=== PATIENT | female | born 1935 | race Caucasian/White ===

== ENCOUNTER 2020-07-12 09:03 | Outpatient (CLI) | payer MEDICARE, SELFPAY ==
--- NOTE | ~2020-07-12 | US_ITS ---
EXAMINATION: US thyroid DATE: 07/12/2020 10:11 INDICATION: Left thyroid mass TECHNIQUE: Multiple ultrasound images of the thyroid were obtained. COMPARISON: None. FINDINGS: The right thyroid lobe measures 4.2 x 1.8 x 1.3 cm. The left thyroid lobe measures 4.2 x 2.3 x 1.9 c m. There is a wider than tall, solid isoechoic to slightly hyperechoic nodule with smooth margins an d with shadowing rim calcification which measures 1.6 x 1.0 x 0.9 cm (TI-RADS 4, moderately suspiciou s , FNA if >=1.5 cm, annual followup is >1 cm). There are numerous bilateral cystic thyroid nodules, the largest measuring up to 1 cm scattered throughout both the left and right thyroid lobes, many wit h peripheral echogenic foci with comet tailing consistent with colloid cysts with inspissated colloid (TI-RADS 1, benign, no FNA recommended). IMPRESSION: 1. 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 6 cm solid TI RADS 4 nodule in the left thyroid lobe for which ultrasound-guided biopsy would be terese mmended. Reviewed, dictated and finalized at location A. IMPRESSION: 1. Multiple bilateral thyroid nodules the majority consistent with colloid cyst s but with a single 1.6 cm solid TI RADS 4 nodule in the left thyroid lobe for which ultrasound-guided biopsy would be recommended.
== END 2020-07-12 09:04 | disposition home or self-care (01) ==
PROVIDERS: PCP Family Medicine; Visit Provider Family Medicine
DX: E04.2 Nontoxic multinodular goiter (principal)
CPT/HCPCS: 76536

== ENCOUNTER → 2020-10-15 08:47 | Outpatient (CLI) | payer MEDICARE, SELFPAY ==
--- NOTE | ~2020-10-15 | MM_ITS ---
EXAMINATION: MM diagnostic sheree BI w reba HISTORY: Palpable mass of the lower inner left breast TECHNIQUE: Craniocaudal, mediolateral, and mediolateral oblique 3-D tomosynthesis images of the breas ts were performed and synthetic 2-D images were generated. CAD analysis was submitted and interpreted . COMPARISON: 10/31/2010, 06/06/2009, 05/17/2008 BREAST PARENCHYMAL COMPOSITION: There are scattered areas of fibroglandular density. FINDINGS: Scattered benign-appearing calcifications are present. The palpable mass of the left breast corresponds to the patient's cardiac loop recorder. There is no evidence of suspicious mass, calcifi cation, or architectural distortion in either breast to suggest malignancy. There has been no suspic ious interval change. IMPRESSION: 1. No mammographic evidence of malignancy. 2. Recommend annual screening mammography while the patient remains in good health. BI-RADS Category 2: Benign finding(s). Reviewed, dictated and finalized at location A. STICS CLERK IMPRESSION: 1. No mammographic evidence of malignancy. 2. Recommend annual screening mammography while the patient remains in good hea lth. BI-RADS Category 2: Benign finding(s).
== END ==
PROVIDERS: PCP Family Medicine; Visit Provider Family Medicine
DX: N63.24 Unspecified lump in the left breast, lower inner quadrant (principal); R92.1 Mammographic calcification found on diagnostic imaging of breast
CPT/HCPCS: 77062; 77066; G0279

== ENCOUNTER 2020-10-23 09:50 | Outpatient (CLI) | payer MEDICARE, SELFPAY ==
--- NOTE | ~2020-10-23 | US_ITS ---
EXAMINATION: US FNA w image guidance DATE: 10/23/2020 11:15 INDICATION: Left thyroid nodule. TECHNIQUE: The procedure and its benefits, risks, and benefits were discussed with the patient. Risks specifical ly discussed included bleeding. The patient verbalized understanding of the risks and agreed to proce ed. The neck was prepped and draped in the usual sterile manner. 1% lidocaine was used for local ane sthesia. 5 passes were made with a 25G needle into the lesion. Appropriate needle location was docu mented with continuous sonographic guidance. There were no immediate complications. FINDINGS: Grayscale ultrasound images demonstrate needles advanced into a 1.6 cm nodule in left thyroid lobe fo r biopsy. IMPRESSION: 1. Ultrasound-guided fine needle aspiration of a left thyroid nodule. Reviewed, dictated and finalized at location A. LOPMENT ENGINEER
== END 2020-10-23 09:51 | disposition home or self-care (01) ==
PROVIDERS: PCP Family Medicine; Visit Provider Otolaryngology
DX: E04.1 Nontoxic single thyroid nodule (principal)
CPT/HCPCS: 10005; 88173; 88305

== ENCOUNTER 2020-11-14 12:25 | Outpatient (CLI) | payer MEDICARE, SELFPAY | END 2020-11-14 12:26 | disposition home or self-care (01) | LOC: ANHAUDIO 12:27 | PROVIDERS: PCP Family Medicine; Referring Provider Otolaryngology; Visit Provider Otolaryngology | DX: H90.3 Sensorineural hearing loss, bilateral (principal) | CPT/HCPCS: 92557; 92567 ==

== ENCOUNTER 2021-01-08 13:31 | Outpatient (CLI) | payer MEDICARE, SELFPAY ==
--- NOTE | 2021-01-08 13:37 | ECHO_ITS ---
Patient Info Name: Renee Bautista Age: 85 years : 1935 Gender: Female Ht: 64 in Wt: 108 lbs BSA: 1.48 m2 HR: 70 bpm BP: 165 / 76 mmHg Technical Quality: Fair Exam Date: 01/08/2021 1:58 PM Exam Location: [facility] Patient Status: Outpatient Admit Date: 01/08/2021 Staff Ordering Physician: Layton Mcclellan APRN Cue Worker: Rosita Nagel RDCS Attending Provider: Layton Mcclellan APRN Referring Physician: Eleuterio CORMIER; Exam Type: CA echo doppler color flow Study Info Indications R01.0 - Benign and innocent cardiac murmurs Complete two-dimensional, color flow and Doppler transthoracic echocardiogram is performed. Summary 1. Complete two-dimensional, color flow and Doppler transthoracic echocardiogram is performed. 2. Left ventricular chamber dimension is normal. 3. Left ventricular systolic function is normal, estimated at 60-65%. 4. Left ventricular septal wall motion is abnormal with septal motion related to bundle branch block. 5. The left ventricular diastolic function is grade I diastolic dysfunction. 6. E/e' 20 is elevated. 7. There is severe aortic valve sclerosis. 8. There is mild aortic valve stenosis based on a peak velocity of 276 cm/s, mean gradient of 16 mmHg, and aortic valve area of 1.5 cm2. However, by visual estimation there appears to be a severe aortic stenosis. Consider EDINSON if clinically indicated. 9. The mitral valve has moderately thickened leaflets and mildly calcified annulus. 10. There is trace tricuspid valve regurgitation. 11. No pulmonary hypertension, estimated pulmonary arterial systolic pressure is 30 mmHg. Left Ventricle E/e' 20 is elevated. Left ventricular chamber dimension is normal. Left ventricular systolic function is normal, estimated at 60-65%. Left ventricular septal wall motion is abnormal with septal motion related to bundle branch block. The left ventricular diastolic function is grade I diastolic dysfunction. Right Ventricle Right ventricular chamber dimension is normal. Right ventricular systolic function is normal. Left Atria Left atrial chamber dimension is normal. Right Atria Right atrial chamber dimension is normal. Aortic Valve There is mild aortic valve stenosis based on a peak velocity of 276 cm/s, mean gradient of 16 mmHg, and aortic valve area of 1.5 cm2. However, by visual estimation there appears to be a severe aortic stenosis. Consider EDINSON if clinically indicated. The aortic valve is trileaflet. There is severe aortic valve sclerosis. There is no aortic valve regurgitation. Pulmonic Valve There is no pulmonic regurgitation. Mitral Valve The mitral valve has moderately thickened leaflets and mildly calcified annulus. There is no mitral valve stenosis. There is no mitral valve regurgitation. Tricuspid Valve There is trace tricuspid valve regurgitation. No pulmonary hypertension, estimated pulmonary arterial systolic pressure is 30 mmHg. Pericardium/Pleural There is no pericardial effusion. Inferior Vena Cava Normal inferior vena cava with >50% collapse upon inspiration consistent with normal right atrial pressure, 5 mmHg. Aorta The aortic root size at the sinus of Valsalva is normal. Left Ventricular Outflow Tract Name Value Normal LVOT 2D
== END 2021-01-08 13:32 | disposition home or self-care (01) ==
PROVIDERS: PCP Internal Medicine; Visit Provider Nurse Practitioner
DX: R01.1 Cardiac murmur, unspecified (principal); I35.8 Other nonrheumatic aortic valve disorders; R93.1 Abnormal findings on diagnostic imaging of heart and coronary circulation
CPT/HCPCS: 93306

== ENCOUNTER 2021-07-01 21:04 | Observation (INO) | payer MEDICARE, SELFPAY ==
--- NOTE | ~2021-07-01 | XR_ITS ---
XR foot LT 2V DATE: 07/04/2021 10:42 INDICATION: Left foot pain. Distal second toe pain, wound TECHNIQUE: AP and lateral views COMPARISON: None FINDINGS: There is diffuse osteopenia. Plantar calcaneal enthesopathy. Hallux valgus and bunion deformity There is polyarticular osteoarthritis involving multiple tarsal, tarsometatarsal, metatarsophalangeal as well as interphalangeal joints. No recent fracture or dislocation, periosteal reaction or bone destruction is detected. There is extensive calcification of the anterior and posterior tibial and dorsalis pedis as well as m etatarsal arteries, suggesting diabetes. IMPRESSION: Diffuse osteopenia Plantar calcaneal enthesopathy Hallux valgus and bunion deformity Polyarticular osteoarthritis Extensive arterial calcifications suggesting diabetes Reviewed, dictated and finalized at location B.
--- NOTE | ~2021-07-01 | XR_ITS ---
XR knee LT 3V DATE: 07/04/2021 10:42 INDICATION: Left knee pain. Recent fall. TECHNIQUE: 3 views COMPARISON: None FINDINGS: There is diffuse osteopenia. There is prominent periarticular spurring of the patellofemoral and to a lesser extent medial lateral compartments. There is chondrocalcinosis of the medial and lateral compartments. No fracture or dislocation or joint effusion. No periosteal reaction or bone destruction. No radiopaq ue intra-articular loose body is evident. There is extensive calcification of the femoral and popliteal and trifurcation arteries. IMPRESSION: Osteopenia Tricompartment osteoarthritis, greatest at the patellofemoral compartment Chondrocalcinosis Reviewed, dictated and finalized at location B.
--- NOTE | ~2021-07-01 | XR_ITS ---
EXAMINATION: XR chest 1V portable DATE: 07/02/2021 00:16 INDICATION: Transient alteration of awareness TECHNIQUE: frontal view of the chest was obtained. COMPARISON: Chest radiograph dated 06/15/2019 FINDINGS: The lungs are clear with no focal airspace opacities, pulmonary edema, pleural effusion or pneumothor ax. Moderate-sized hiatal hernia. The cardiomediastinal silhouette is otherwise normal. Left pectoral implantable phototypesetting equipment monitor. IMPRESSION: 1. No acute cardiopulmonary disease. 2. Moderate-sized hiatal hernia. Reviewed, dictated and finalized at location A.
--- NOTE | ~2021-07-01 | CT_ITS ---
EXAMINATION: CT abdomen pelvis wo con DATE: 07/02/2021 00:28 INDICATION: Generalized abdominal pain and diarrhea TECHNIQUE: Computed tomography (CT) of the abdomen and pelvis was performed without intravenous contr ast. The dose-length product (DLP) was 180.07 mGy-cm. Automated exposure control and iterative recons truction technique were employed. COMPARISON: 02/10/2018 FINDINGS: Minimal dependent atelectasis is present in the lung bases. The heart size is normal. There is chronic pneumobilia, predominantly in the left hepatic lobe. There is a large hiatal hernia. The gallbladder is surgically absent. The spleen, pancreas, and adrenal glands appear normal. The kidneys are unremarkable. There is calcified atherosclerosis of the aorta and many of the other arteries. No pathologically enlarged abdominal or pelvic lymph nodes are identified. There is no free intraperito carlene gas or evidence of bowel obstruction. There is questionable mild wall thickening of the ascendin g colon. There is a 2.5 x 2.8 cm fluid collection in the right inguinal soft tissues. There is severe lumbar spondylosis. . IMPRESSION: 1. Possible mild wall thickening of the ascending colon which could be due to incomplete distention o r possibly colitis. Recommend correlation for tenderness. Reviewed, dictated and finalized at location A. IMPRESSION: 1. Possible mild wall thickening of the ascending colon which could be due to i ncomplete distention or possibly colitis. Recommend correlation for tenderness.
[2021-07-01 21:11] VITALS: BP 147/64; PULSE 69; RESP 15; TEMP 37.6; O2SAT 95
--- NOTE | 2021-07-01 21:27 | ECG_ITS ---
Measurements Intervals Dell Rate: 67 P: -5 MO: 179 QRS: -30 QRSD: 133 T: 64 QT: 407 QTc: 432 Interpretive Statements SINUS RHYTHM LEFT BUNDLE BRANCH BLOCK BASELINE ARTIFACT- V6 ABNORMAL ECG Electronically Signed On 07-02-2021 6:26:30 CDT by Nate Jain D.O.
--- NOTE | 2021-07-01 23:05 | PC.NURSE ---
This RN attempted to straight cath pt x2 with separate catheter kits. Another RN to try.
[2021-07-01 23:21] VITALS: BP 121/56; PULSE 68; RESP 17; O2SAT 94
[2021-07-01 23:31] LABS: Basophils Percent Auto 0.3 % (0.2-1.2); Hematocrit 40.6 % (37.0-47.0); Hemoglobin 12.9 g/dL (12.0-15.0); Immature Granulocyte Absolute 0.01 K/mm3 (0.00-0.031); Immature Granulocyte Percent A 0.3 % (0-0.5); Immature Platelet Fraction Pct 3.1 % (0.9-11.2); Lymphocytes Absolute Auto 0.77 K/mm3 (0.9-3.2); Lymphocytes Percent Auto 19.7 % (18.3-44.2); Mean Corpuscular HGB Conc 31.8 g/dl (32-36); Mean Corpuscular Hemoglobin 32.4 pg (26-34); Mean Platelet Volume 10.8 fl (7.4-10.4); Monocytes Absolute Auto 0.3 K/mm3 (0.1-0.6); Monocytes Percent Auto 8.7 % (2.6-8.5); Neutrophils Absolute Auto 2.8 K/mm3 (1.3-6.7); Platelet Count Result 99 k/mm3 (150-375); Red Blood Count 3.98 M/mm3 (4.2-5.4); Red Cell Distribution Width 12.9 % (11.5-14.5); White Blood Count 3.9 K/mm3 (4.5-10.0)
--- NOTE | 2021-07-01 23:31 | PC.NURSE ---
pts clothing appears unwashed for long period of time. pt had dried stool on her vagina and buttocks, appears to have been there for a long period of time as well. pts RN notified, as well as charger tester.
[2021-07-01 23:33] LABS: Add Urine Microscopic? YES; Appearance Urine Clear (Clear); Bilirubin Urine Negative (Negative); Blood Urine Negative (Negative); Color Urine Yellow (Yellow); Glucose Urine UA Negative (Negative); Ketones Urine Trace mg/dL (Negative); Leukocyte Esterase Ur Negative LEU/UL (Negative); Mucus Urine Rare /lpf; Nitrate Urine Negative (Negative); Protein Urine 2+ mg/dL (Negative); RBC Urine 0-2 /hpf (0-2); Specific Grav Ur 1.016 (1.001-1.035); Squamous Epithelial Cell Urine Rare /hpf (Few); Urobilinogen Urine Negative mg/dL (<2.0); WBC Urine 0-3 /hpf
[2021-07-01 23:50] LABS: Alanine Aminotransferase 15 U/L (4-35); Albumin Level 3.3 g/dL (3.5-5.1); Alkaline Phosphatase 65 U/L (38-126); Anion Gap 13 mmol/L (8-16); Aspartate Amino Transferase 35 U/L (14-36); Bilirubin,Total 0.3 mg/dL (0.2-1.3); Blood Urea Nitrogen 36 mg/dL (7-17); Calcium 8.7 mg/dL (8.4-10.2); Carbon Dioxide 17 mmol/L (22-30); Chloride 111 mmol/L (98-107); Estimated Glomerular Filt Rate 33; Glucose 76 mg/dL (65-110); Potassium 4.6 mmol/L (3.4-5.0); Sodium 141 mmol/L (137-145)
[2021-07-02] VITALS (10 sets, daily range): BP systolic 100–146; BP diastolic 36–56; PULSE 58–70; RESP 16–22; TEMP 36.1–37.2; O2SAT 92–96; BMI 17.4
[2021-07-02] MEDS: ONDANSETRON INJ 4 MG/2 ML VIAL IV PUSH (00:27)
[2021-07-02] MEDS: SODIUM CHLORIDE 0.9% IV 1,000 ML 999 ML IV CONT (00:27)
--- NOTE | 2021-07-02 01:14 | ED.GENADULT ---
HPI - General Adult General Chief complaint: Weakness Stated complaint: weakness Time Seen by Provider: 07/01/21 23:45 History of Present Illness HPI narrative: Patient 86-year-old female who presents the emergency department chief complaint of generalized weakness. The patient reports has been having significant diarrhea reports that she has some discomfort in her abdomen. The patient states this feels similar to whenever she had colitis before in the past and got dehydrated. The patient states that is not able to care for herself in her current state not able to get up and walk around. Patient reports symptoms are not improved by anything or they worsened by nothing. Related Data Home Medications Medication Instructions Recorded Confirmed glucosamine BPa-K1-Hktnekukk 1 tablet PO DAILY 10/10/20 03/21/21 karol 1,500 mg-400 unit-100 mg tablet uvqobpyj-rtq-juzou acid 0.4 1 tablet PO DAILY 10/10/20 03/21/21 mg-lycopene 300 mcg-lutein 250 mcg tablet naproxen sodium 220 mg capsule 220 mg PO BID PRN 10/10/20 03/21/21 zebyfcl-qjblowuwpxmys-sexhljmj 250 1 tablet PO Q4-6H PRN 12/13/20 03/21/21 mg-250 mg-65 mg tablet krill 350 mg-omega-3 90 mg-dha 24 cap PO 12/13/20 03/21/21 mg-epa 50 tw-ryaaobu-gumva capsule losartan 50 mg tablet 50 mg PO DAILY 12/13/20 03/21/21 melatonin 5 mg capsule mg PO .daily at HS cap 12/13/20 03/21/21 vit C,E,zinc,copper-dhrka9n 250 1 cap PO DAILY 12/13/20 03/21/21 mg-lutein 5 mg-zeaxanthin 1 mg capsule Allergies Allergy/AdvReac Type Severity Reaction Status Date / Time Penicillins Allergy Unknown Weakness Verified 07/01/21 21:22 Review of Systems Review of Systems: A 10 system review of systems was completed on the patient and is negative except for what is stated in the HPI. Nursing and ancillary documentation was reviewed. [facility] Past Medical History Medical History Arthritis History of cervical cancer History of headache Surgical History Surgical History History of laparoscopic cholecystectomy Family History Family History Father Carcinoma of colon Grandparent Carcinoma of colon Grandparent Tuberculosis Social History Social History Smoking status: Former smoker Smoking end date: 09/02/01 Gender identity (if verbalized by the patient): Female Exam Narrative: GENERAL: Well-appearing, well-nourished, and in no acute distress. HEAD: Normocephalic, atraumatic. EYES: PERRLA and EOMI. ENT: Nares clear, no rhinorrhea or epistaxis. Mucous membranes moist. NECK: Supple. CHEST: Clear to auscultation. No respiratory distress. HEART: Regular rate and rhythm. No murmur heard. Normal peripheral pulses. ABDOMEN: Soft, nontender, nondistended, normal active bowel sounds. EXTREMITIES: Normal range of motion. No edema. SKIN: Warm, dry, no rash. NEURO: No focal deficits. Alert and oriented x3. PSYCH: Normal mood and affect. Course Vital Signs Vital signs: Vital Signs Temperature 37.6 C 07/01/21 21:11 Pulse Rate 69 07/01/21 21:11 Respiratory Rate 15 07/01/21 21:11 Blood Pressure 147/64 H 07/01/21 21:11 Pulse Oximetry 95 07/01/21 21:11 Temperature 37.6 C 07/01/21 21:11 Pulse Rate 65 07/02/21 00:49 Respiratory Rate 17 07/02/21 00:49 Blood Pressure 137/47 L 07/02/21 00:49 Pulse Oximetry 94 07/02/21 00:49 Medical Decision Making Vital Signs Vital Signs: Vital Signs Temperature 37.6 C 07/01/21 21:11 Pulse Rate 69 07/01/21 21:11 Respiratory Rate 15 07/01/21 21:11 Blood Pressure 147/64 H 07/01/21 21:11 Pulse Oximetry 95 07/01/21 21:11 Temperature 37.6 C 07/01/21 21:11 Pulse Rate 65 07/02/21 00:49 Respiratory R
[2021-07-02 02:06] LABS: Lactic Acid Reflex 0.7 mmol/L (0.7-2.1)
[2021-07-02] MEDS: metroNIDAZOLE 500 MG/ISO 100ML 500 MG/100 ML BAG 100 MG IVPB ×5 (02:15→23:28)
--- NOTE | 2021-07-02 02:37 | ADMGEN ---
This patient, Renee Bautista, was admitted to Medical Room 247-. Patient/family oriented to hospital policies and general routines including ID bracelet, bed and alarms, visiting hours, pain management, procedures, bathroom and other care routines, personal items, smoking policy, room service/diet, and visiting hours. Information on how to activate the Rapid Response Team has been discussed. Patient/Family are encouraged to report perceived risks to care and to ask questions if they do not understand what they are told or what they should do.
[2021-07-02] MEDS: SODIUM CHLORIDE 0.9% IV 1,000 ML 125 ML IV CONT (03:18)
--- NOTE | 2021-07-02 03:23 | PM.IMHP ---
H&P: HPI History of Present Illness Date/Time: 07/02/21 03:23 Chief Complaint: weakness Narrative: Patient 86-year-old female who presents the emergency department accompanied by her son who is her executive consultant with complaints of generalized weakness. The patient reports she has been having significant diarrhea since past few days and reports that she has some discomfort in her abdomen. The patient states this feels similar to whenever she had colitis before in the past approximately 4 years ago and got dehydrated. she has not been eating and drinking much since past few days and was not able to care for herself and able to get up and get around. She denies any fevers chills. She denies any blood in her stool. She was having dry heaving and small amount of vomiting until yesterday. Review of Systems Review of Systems: - CONSTITUTIONAL: Denies weight loss, fever and chills. - HEENT: Denies changes in vision and hearing - RESPIRATORY: Denies SOB and cough. - CV: Denies palpitations and CP. - GI: Reports abdominal pain, nausea, vomiting and diarrhea. - : Denies dysuria and urinary frequency. - MSK: Denies myalgia and joint pain. - SKIN: Denies rash and pruritus. - NEUROLOGICAL: Denies headache and syncope. - PSYCHIATRIC: Denies recent changes in mood. Denies anxiety and depression. All systems reviewed & are unremarkable except as noted in HPI and below Constitutional: Constitutional: Reports fatigue and Reports weakness Neurologic: Reports weakness Endocrine: Endocrine: Reports fatigue PMFSH Past Medical History Medical History Arthritis History of cervical cancer History of headache Surgical History Surgical History History of laparoscopic cholecystectomy Family History Family History Father Carcinoma of colon Grandparent Carcinoma of colon Grandparent Tuberculosis Social History Social History Smoking status: Former smoker Substance use: former Substance use type: does not use Gender identity (if verbalized by the patient): Female Spiritual care concerns: No Meds Home Medications and Allergies Home Medications Medication Instructions Recorded Confirmed Type glucosamine HTu-X2-Wagqxzzwb 1 tablet PO DAILY 10/10/20 07/02/21 History karol 1,500 mg-400 unit-100 mg tablet uxzdbzvp-lfa-oinll acid 0.4 1 tablet PO DAILY 10/10/20 07/02/21 History mg-lycopene 300 mcg-lutein 250 mcg tablet naproxen sodium 220 mg capsule 220 mg PO BID PRN 10/10/20 07/02/21 History tezqoob-lzamwrvhyvhvj-vrwhmvxr 250 1 tablet PO Q4-6H PRN 12/13/20 07/02/21 History mg-250 mg-65 mg tablet glucosamine 750 qo-sqfnwrnerfg-toe 1 tablet PO BID #60 tablet 12/13/20 07/02/21 Rx no1 644 mg-C 30 mg-elissa 1 mg tablet krill 350 mg-omega-3 90 mg-dha 24 1 cap PO DAILY 12/13/20 07/02/21 History mg-epa 50 sl-lsczdub-ntqpb capsule losartan 50 mg tablet 50 mg PO DAILY 12/13/20 07/02/21 History melatonin 5 mg capsule 5 mg PO .daily at HS cap 12/13/20 07/02/21 History vit C,E,zinc,copper-paqmf8g 250 1 cap PO DAILY 12/13/20 07/02/21 History mg-lutein 5 mg-zeaxanthin 1 mg capsule omeprazole 40 mg capsule,delayed 40 mg PO DAILY #30 cap 02/15/21 07/02/21 Rx release hydrocodone 7.5 mg-acetaminophen 1 tablet PO Q8H PRN #90 tablet 06/20/21 07/02/21 Rx 325 mg tablet atorvastatin [Lipitor] 40 mg PO DAILY 07/02/21 07/02/21 History carvedilol [Coreg] 12.5 mg PO BID 07/02/21 07/02/21 History Allergies Allergy/AdvReac Type Severity Reaction Status Date / Time Penicillins Allergy Unknown Weakness Verified 07/01/21 21:22 Vital Signs Vital Signs - 24 hr 07/01/21 21:11 07/01/21 23:21 07/02/21 00:49 Tem
[2021-07-02] MEDS: ENOXAPARIN 30 MG/0.3 ML SYRINGE SUB-Q (10:12)
[2021-07-02] MEDS: LOSARTAN POTASSIUM 50 MG TABLET PO (10:13)
[2021-07-02] MEDS: carvediloL 12.5 MG TABLET PO (10:13)
[2021-07-02] MEDS: PANTOPRAZOLE 40 MG TABLET PO (10:13)
[2021-07-02] MEDS: ATORVASTATIN 40 MG TABLET PO (10:14)
[2021-07-02] MEDS: ACETAMINOPHEN/ASPIRIN/CAFFEINE 250-250-65 MG TABLET 1 TABLET PO (10:14)
[2021-07-02] MEDS: OPTI-GEN TAB 1 TABLET PO (10:15)
[2021-07-02] MEDS: MULTIVITAMINS /C LUTEIN (CENTRUM SILVER) TABLET *BKC 1 TAB PO (10:15)
--- NOTE | 2021-07-02 11:52 | PC.NURSE ---
pt's IV becomes occluded whenever pt bends her right arm; pt keeps her right arm in the bent position and on top of her chest resulting in the IVPB and IV fluids not being infused and not infused in the time expected; as a result of frequent occlusion, pt's IVPB are not on schedule
[2021-07-02] MEDS: SILVERGEL (ELTA) 45 ML 1 APPLIC TOPICAL (12:46)
--- NOTE | 2021-07-02 13:56 | PM.IMPN ---
Progress Note: A&P Assessment and Plan (1) Colitis: Code(s): K52.9 - Noninfective gastroenteritis and colitis, unspecified Status: Acute Assessment and Plan: - symptoms of diarrhea, likely infectious -Continue antibiotics: Levaquin and Flagyl - IV fluids for resuscitation, patient has decreased p.o. intake will continue IV fluids for now (2) NICHOLE (acute kidney injury): Code(s): N17.9 - Acute kidney failure, unspecified Status: Acute Assessment and Plan: creatinine 1.5 unclear baseline (maybe it is 1 as of 2018), continue IV fluids with diarrhea and decreased p.o. intake (3) Left bundle branch block: Code(s): I44.7 - Left bundle-branch block, unspecified Status: Acute Assessment and Plan: longstanding patient also has severe aortic stenosis longstanding (4) Essential (primary) hypertension: Code(s): I10 - Essential (primary) hypertension Status: Acute Assessment and Plan: continue home medications: Coreg, Cozaar Additional Plan Diet: Regular DVT prophylaxis: Lovenox GI prophylaxis: Ppi Code status: Do not resuscitate Disposition: Pending clinical course, IV antibiotics, PT OT evaluation Time Spent With Patient Time with patient: 15 - 25 minutes Subjective Date/time seen: 07/02/21 13:56 patient examined. She states she is hungry but once of food came she lost her appetite. We discussed continuing antibiotics for her colitis and encouraging increased p.o. intake. She has Ensure dietary supplement With her meals. IV fluids with decreased p.o. intake and with diarrhea. she states she has had another large bowel movement this morning however stool cultures were not collected. she is on Levaquin Flagyl for colitis. Patient denies fever, chills, nausea, vomiting. She endorses diarrhea and abdominal cramps. Review of Systems Review of Systems: All systems reviewed & are unremarkable except as noted in HPI and below Exam Narrative: - GENERAL: Pleasant frail elderly woman appears stated age. - EYES: EOMI. Anicteric. - HENT: Moist mucous membranes. - LUNGS: Clear to auscultation bilaterally, no wheezing, rhonchi, or rales. - CARDIOVASCULAR: Regular rate and rhythm. No murmur. - ABDOMEN: Soft, non-tender and non-distended. No palpable masses. - EXTREMITIES: No edema. Peripheral pulses 2+. multiple dry lesions on her lower extremities patient states are chronic. thin. - NEUROLOGIC: No focal neurological deficits. CN II-XII grossly intact. - PSYCHIATRIC: Awake, Alert and oriented. Appropriate mood and affect. - SKIN: Warm. lesions as above Objective Data Vital Signs Vital Signs: Vital Signs - 24 hr 07/01/21 21:11 07/01/21 23:21 07/02/21 00:49 Temperature 37.6 C Pulse Rate 69 68 65 Respiratory Rate 15 17 17 Blood Pressure 147/64 H 121/56 L 137/47 L Pulse Oximetry 95 94 94 07/02/21 01:34 07/02/21 03:09 07/02/21 03:30 Temperature 37.2 C Pulse Rate 70 70 62 Respiratory Rate 16 16 16 Blood Pressure 146/56 H 137/52 L Pulse Oximetry 93 93 92 07/02/21 05:48 07/02/21 10:13 Temperature 36.9 C Pulse Rate 64 61 Respiratory Rate 16 Blood Pressure 125/50 L Pulse Oximetry 96 Intake/Output Intake/Output: Intake & Output 06/29/21 06/30/21 07/01/21 07/02/21 23:59 23:59 23:59 23:59 Intake Total 1560 Balance 1560 Meds/Results Medications: Active Medications Generic Name Dose Route Start Last Admin Trade Name Joseq PRN Reason Stop Dose Admin Acetaminophen/Aspirin/Caffeine 1 tablet 07/02/21 03:33 07/02/21 10:14 Acetaminophen/Aspirin/Caffeine 250-250-65 Mg Tablet PO 1 tablet Q4-6H PRN Administration Headache Hydrocodone Bitart/Acetaminophen 1 tab 07/02/21 03:33 Hydrocodone/Acetaminophen (*Crx) 7.5-325 Mg Tablet PO Q8H PRN Pain Rated 4-6 Atorvastatin Calcium 40 mg 07/02/21 09:00 07/02/21 10:14 Atorvastatin 40 Mg Tablet PO 40 mg DAILY DAHIANA Administration Car
[2021-07-02] MEDS: HYDROcodone/acetaminophen (*CRX) 7.5-325 MG TABLET 1 TAB PO (20:27)
[2021-07-02] MEDS: MELATONIN 5 MG TABLET PO (20:29)
[2021-07-03] MEDS: ACETAMINOPHEN/ASPIRIN/CAFFEINE 250-250-65 MG TABLET 1 TABLET PO (01:09)
[2021-07-03 04:58] VITALS: BP 137/46; PULSE 54; RESP 18; TEMP 36; O2SAT 96
[2021-07-03] MEDS: metroNIDAZOLE 500 MG/ISO 100ML 500 MG/100 ML BAG 100 MG IVPB ×4 (05:06→23:58)
[2021-07-03] MEDS: OPTI-GEN TAB 1 TABLET PO (08:58)
[2021-07-03] MEDS: SILVERGEL (ELTA) 45 ML 1 APPLIC TOPICAL (08:58)
[2021-07-03 08:59] VITALS: PULSE 61
[2021-07-03] MEDS: PANTOPRAZOLE 40 MG TABLET PO (08:59)
[2021-07-03] MEDS: carvediloL 12.5 MG TABLET PO ×2 (08:59→21:27)
[2021-07-03] MEDS: ATORVASTATIN 40 MG TABLET PO (09:00)
[2021-07-03] MEDS: MULTIVITAMINS /C LUTEIN (CENTRUM SILVER) TABLET *BKC 1 TAB PO (09:00)
[2021-07-03] MEDS: ENOXAPARIN 30 MG/0.3 ML SYRINGE SUB-Q (09:00)
--- NOTE | 2021-07-03 11:14 | PM.IMPN ---
Progress Note: A&P Assessment and Plan (1) Colitis: Code(s): K52.9 - Noninfective gastroenteritis and colitis, unspecified Status: Acute Assessment and Plan: - seen on CT scan, continue Levaquin and Flagyl antibiotics, will transition to p.o. when stable - diarrhea appears to be slowing down (2) NICHOLE (acute kidney injury): Code(s): N17.9 - Acute kidney failure, unspecified Status: Acute Assessment and Plan: likely secondary to diarrhea, prerenal etiology (3) Acute dehydration: Code(s): E86.0 - Dehydration Status: Acute Assessment and Plan: - stopping IV fluids, blood pressure is normotensive today - Encourage p.o. intake with meal supplement (4) Essential (primary) hypertension: Code(s): I10 - Essential (primary) hypertension Status: Acute Assessment and Plan: yesterday blood pressures hypotensive, will continue home medications Cozaar Coreg as her blood pressures improved. IV fluids also stopped Additional Plan Diet: Regular with supplement DVT prophylaxis: Lovenox GI prophylaxis: Ppi Code status: Do not resuscitate Disposition: Pending PT OT evaluation, antibiotics may be transitioned IV to p.o. on discharge Time Spent With Patient Time with patient: 15 - 25 minutes Subjective Date/time seen: 07/03/21 11:14 Patient examined. She has been sleeping a lot with opiates, and we discussed limiting opiate use for which she agrees with plan. which stopping IV fluids and encouraged p.o. intake. Blood pressure appears to be stable compared to yesterday temporary low. Nurse states yesterday her p.o. intake is right little, will watch closely and continue Ensure meal supplement. Patient to work with PT and OT today. Patient states her diarrhea is slowing down and feels slightly better with less abdominal pain. she states her appetite has been minimal. She denies fever, chills, nausea, vomiting, chest pain. Review of Systems Review of Systems: All systems reviewed & are unremarkable except as noted in HPI and below Exam Narrative: - GENERAL: Pleasant frail elderly woman appears stated age. Sleeping comfortably, easily arousable. - EYES: EOMI. Anicteric. - HENT: Moist mucous membranes. - LUNGS: Clear to auscultation bilaterally, no wheezing, rhonchi, or rales. - CARDIOVASCULAR: Regular rate and rhythm. No murmur. - ABDOMEN: Soft, non-tender and non-distended. No palpable masses. - EXTREMITIES: No edema, Thin extremities. Peripheral pulses 2+. multiple dry lesions on her lower extremities patient states are chronic. - NEUROLOGIC: No focal neurological deficits. CN II-XII grossly intact. - PSYCHIATRIC: Awake, Alert. Appropriate mood and affect. - SKIN: Warm. lesions as above Objective Data Vital Signs Vital Signs: Vital Signs - 24 hr 07/02/21 14:00 07/02/21 20:00 07/02/21 20:25 Temperature 36.4 C 36.1 C L Pulse Rate 63 58 L 60 Respiratory Rate 16 22 H 22 H Blood Pressure 100/38 L 113/36 L Pulse Oximetry 95 96 96 07/02/21 20:29 07/03/21 04:58 07/03/21 08:59 Temperature 36.0 C L Pulse Rate 58 L 54 L 61 Respiratory Rate 18 Blood Pressure 137/46 L Pulse Oximetry 96 Intake/Output Intake/Output: Intake & Output 06/30/21 07/01/21 07/02/21 07/03/21 23:59 23:59 23:59 23:59 Intake Total 2195 560 Balance 2195 560 Meds/Results Medications: Active Medications Generic Name Dose Route Start Last Admin Trade Name Freq PRN Reason Stop Dose Admin Acetaminophen/Aspirin/Caffeine 1 tablet 07/02/21 03:33 07/03/21 01:09 Acetaminophen/Aspirin/Caffeine 250-250-65 Mg Tablet PO 1 tablet Q4-6H PRN Administration Headache Hydrocodone Bitart/Acetaminophen 1 tab 07/02/21 03:33 07/02/21 20:27 Hydrocodone/Acetaminophen (*Crx) 7.5-325 Mg Tablet PO 1 tab Q8H PRN Administration Pain Rated 4-6 Atorvastatin Calcium 40 mg 07/02/21 09:00 07/03/21 09:00 Atorvastatin 40 Mg Tablet PO 40 mg
[2021-07-03 14:00] VITALS: BP 126/64; PULSE 65; RESP 16; TEMP 37.1; O2SAT 93
[2021-07-03 20:00] VITALS: PULSE 64; RESP 20; O2SAT 94
[2021-07-03 21:27] VITALS: PULSE 64
[2021-07-03] MEDS: levoFLOXacin 500 MG/D5W 100 ML 500 MG/100 ML BAG 100 MG IVPB (21:27)
[2021-07-03] MEDS: MELATONIN 5 MG TABLET PO (21:27)
[2021-07-03 22:00] VITALS: BP 172/52; PULSE 64; RESP 20; TEMP 36.9; O2SAT 94
[2021-07-03] MEDS: HYDROcodone/acetaminophen (*CRX) 7.5-325 MG TABLET 1 TAB PO (22:18)
[2021-07-04] MEDS: ACETAMINOPHEN/ASPIRIN/CAFFEINE 250-250-65 MG TABLET 1 TABLET PO (03:35)
[2021-07-04] MEDS: metroNIDAZOLE 500 MG/ISO 100ML 500 MG/100 ML BAG 100 MG IVPB ×3 (05:01→17:46)
[2021-07-04 05:47] LABS: Hematocrit 38.7 % (37.0-47.0); Hemoglobin 11.4 g/dL (12.0-15.0); Mean Corpuscular HGB Conc 29.5 g/dl (32-36); Mean Corpuscular Hemoglobin 32.9 pg (26-34); Mean Corpuscular Volume 111.5 fl (80-100); Platelet Count Result 100 k/mm3 (150-375); Red Blood Count 3.47 M/mm3 (4.2-5.4); Red Cell Distribution Width 13.1 % (11.5-14.5); White Blood Count 3.4 K/mm3 (4.5-10.0)
[2021-07-04 05:57] LABS: Anion Gap 5 mmol/L (8-16); Blood Urea Nitrogen 32 mg/dL (7-17); Calcium 7.9 mg/dL (8.4-10.2); Carbon Dioxide 15 mmol/L (22-30); Chloride 118 mmol/L (98-107); Estimated CRCL calculation 22 ml/min; Estimated Glomerular Filt Rate 43; Glucose 76 mg/dL (65-110); Potassium 4.2 mmol/L (3.4-5.0); Sodium 138 mmol/L (137-145)
[2021-07-04 06:00] VITALS: BP 135/53; PULSE 56; RESP 18; TEMP 36.4; O2SAT 93
[2021-07-04] MEDS: HYDROcodone/acetaminophen (*CRX) 7.5-325 MG TABLET 1 TAB PO ×2 (06:03→18:34)
[2021-07-04 08:55] VITALS: BP 144/60; PULSE 60; RESP 17; O2SAT 95
[2021-07-04 08:56] VITALS: PULSE 60
[2021-07-04] MEDS: carvediloL 12.5 MG TABLET PO ×2 (08:56→20:30)
[2021-07-04] MEDS: ATORVASTATIN 40 MG TABLET PO (08:56)
[2021-07-04] MEDS: MULTIVITAMINS /C LUTEIN (CENTRUM SILVER) TABLET *BKC 1 TAB PO (08:57)
[2021-07-04] MEDS: SILVERGEL (ELTA) 45 ML 1 APPLIC TOPICAL (08:57)
[2021-07-04] MEDS: OPTI-GEN TAB 1 TABLET PO (08:57)
[2021-07-04] MEDS: PANTOPRAZOLE 40 MG TABLET PO (08:57)
[2021-07-04] MEDS: ENOXAPARIN 30 MG/0.3 ML SYRINGE SUB-Q (12:22)
--- NOTE | 2021-07-04 13:29 | PM.IMPN ---
Progress Note: A&P Assessment and Plan (1) NICHOLE (acute kidney injury): Code(s): N17.9 - Acute kidney failure, unspecified Status: Acute Assessment and Plan: Slowly improving creatinine down to 1.2. IV fluids have been stopped (2) Colitis: Code(s): K52.9 - Noninfective gastroenteritis and colitis, unspecified Status: Acute Assessment and Plan: Finishing course of Levaquin Flagyl for antibiotics. Diarrhea appears to have resolved (3) Acute dehydration: Code(s): E86.0 - Dehydration Status: Acute Assessment and Plan: Resolved, patient tolerating p.o. intake. (4) Polyarthritis of multiple sites: Code(s): M13.0 - Polyarthritis, unspecified Status: Acute Assessment and Plan: left knee and left foot pain which is limiting activity. Obtaining x-rays. patient has known arthritis history. Additional Plan Diet: Regular with Meal supplement DVT prophylaxis: Lovenox GI prophylaxis: Ppi Code status: Do not resuscitate Disposition: patient would likely benefit from fpc faciliy. Time Spent With Patient Time with patient: 25 - 35 minutes Subjective Date/time seen: 07/04/21 13:29. patient examined. She complains of left knee and left foot pain, we will get x-rays today. She has had left foot problems for over a year. She is breathing comfortably on room air. Her diarrhea has resolved. Patient is on antibiotics for colitis, renal function is improving daily. Plan is could rehab soon. Patient denies fever, chills nausea vomiting diarrhea. Review of Systems Review of Systems: All systems reviewed & are unremarkable except as noted in HPI and below Exam Narrative: - GENERAL: Pleasant frail elderly woman appears stated age. Sleeping comfortably, easily arousable. - EYES: EOMI. Anicteric. - HENT: Moist mucous membranes. - LUNGS: Clear to auscultation bilaterally, no wheezing, rhonchi, or rales. - CARDIOVASCULAR: Regular rate and rhythm. No murmur. - ABDOMEN: Soft, non-tender and non-distended. No palpable masses. - EXTREMITIES: No edema, Thin extremities. Peripheral pulses 2+. multiple dry lesions on her lower extremities patient states are chronic. left knee tender to palpation and manipulation. Left mangle tender - NEUROLOGIC: No focal neurological deficits. CN II-XII grossly intact. - PSYCHIATRIC: Awake, Alert. Appropriate mood and affect. - SKIN: Warm. lesions as above Objective Data Vital Signs Vital Signs: Vital Signs - 24 hr 07/03/21 14:00 07/03/21 20:00 07/03/21 21:27 Temperature 37.1 C Pulse Rate 65 64 64 Respiratory Rate 16 20 Blood Pressure 126/64 Pulse Oximetry 93 94 07/03/21 22:00 07/04/21 06:00 07/04/21 08:55 Temperature 36.9 C 36.4 C L Pulse Rate 64 56 L 60 Respiratory Rate 20 18 17 Blood Pressure 172/52 H 135/53 L 144/60 H Pulse Oximetry 94 93 95 07/04/21 08:56 Temperature Pulse Rate 60 Respiratory Rate Blood Pressure Pulse Oximetry Intake/Output Intake/Output: Intake & Output 07/01/21 07/02/21 07/03/21 07/04/21 23:59 23:59 23:59 23:59 Intake Total 2195 1080 420 Balance 2195 1080 420 Meds/Results Medications: Active Medications Generic Name Dose Route Start Last Admin Trade Name Freq PRN Reason Stop Dose Admin Acetaminophen/Aspirin/Caffeine 1 tablet 07/02/21 03:33 07/04/21 03:35 Acetaminophen/Aspirin/Caffeine 250-250-65 Mg Tablet PO 1 tablet Q4-6H PRN Administration Headache Hydrocodone Bitart/Acetaminophen 1 tab 07/02/21 03:33 07/04/21 06:03 Hydrocodone/Acetaminophen (*Crx) 7.5-325 Mg Tablet PO 1 tab Q8H PRN Administration Pain Rated 4-6 Atorvastatin Calcium 40 mg 07/02/21 09:00 07/04/21 08:56 Atorvastatin 40 Mg Tablet PO 40 mg DAILY DAHIANA Administration Carvedilol 12.5 mg 07/02/21 09:00 07/04/21 08:56 Carvedilol 12.5 Mg Tablet PO 12.5 mg Q12HR DAHIANA Administration Enoxaparin Sodium 30 mg 07/02/21
[2021-07-04 14:00] VITALS: BP 111/54; PULSE 60; RESP 18; TEMP 36.4; O2SAT 96
[2021-07-04 16:58] LABS: EDCOVIDSCREEN Positive (Negative)
[2021-07-04 20:00] VITALS: BP 145/67; PULSE 62; RESP 18; TEMP 36.5; O2SAT 91
[2021-07-04 20:30] VITALS: PULSE 62
[2021-07-04] MEDS: MELATONIN 5 MG TABLET PO (20:30)
[2021-07-05] VITALS (7 sets, daily range): BP systolic 119–182; BP diastolic 55–72; PULSE 55–70; RESP 12–18; TEMP 36.3–37.2; O2SAT 92–97
[2021-07-05] MEDS: metroNIDAZOLE 500 MG/ISO 100ML 500 MG/100 ML BAG 100 MG IVPB ×3 (00:37→11:29)
[2021-07-05] MEDS: HYDROcodone/acetaminophen (*CRX) 7.5-325 MG TABLET 1 TAB PO (02:39)
[2021-07-05] MEDS: SILVERGEL (ELTA) 45 ML 1 APPLIC TOPICAL (09:50)
[2021-07-05] MEDS: carvediloL 12.5 MG TABLET PO ×2 (09:51→21:08)
[2021-07-05] MEDS: OPTI-GEN TAB 1 TABLET PO (09:51)
[2021-07-05] MEDS: ATORVASTATIN 40 MG TABLET PO (09:51)
[2021-07-05] MEDS: ENOXAPARIN 30 MG/0.3 ML SYRINGE SUB-Q (09:51)
[2021-07-05] MEDS: MULTIVITAMINS /C LUTEIN (CENTRUM SILVER) TABLET *BKC 1 TAB PO (09:51)
[2021-07-05] MEDS: PANTOPRAZOLE 40 MG TABLET PO (09:52)
--- NOTE | 2021-07-05 13:45 | PCPTNOTE ---
Patient declined PT stating she feels nauseated and has felt this way all day. PT will continue to follow per plan of care.
[2021-07-05] MEDS: ONDANSETRON HCL ODT 4 MG TABLET PO (14:38)
--- NOTE | 2021-07-05 14:40 | PCOTNOTE ---
Patient refused to perform therapy this afternoon. Patient c/o increased nausea at this time.
--- NOTE | 2021-07-05 15:22 | PCDIET ---
Nutrition Follow-Up Complete: Inadequate Oral Intake as related to colitis as evidenced by poor po intake reported. Adequate Intake of at least 75% of meals/supplements Goal: Goal not met. Continue goal. Pt current nutrition is Regular + ensure compact BID Nutrition recommendation: agree Last recorded weight is 45.9 kg, recommend updated wt Bowel Motility: Large brown liquid stool today Labs Reviewed:Hgb 11.4, GFR 43, Cr 1.20 Meds Noted:Flagyl, melatonin, norco, lipitor, MTV, Protonix Additional Notes: Pt is on a regular diet with Ensure BID to help meet needs. Ensure provides 240kcals per bottle. Pt eating 10&30% yesterday but no intakes today. Large liquid BMs. Hx of colitis. On flagyl. Agree with current diet. Recommend probiotic and soluble fiber to help bulk stools. RD will monitor every 3 days.
--- NOTE | 2021-07-05 16:23 | PM.IMPN ---
Progress Note: A&P Assessment and Plan (1) COVID-19: Code(s): U07.1 - COVID-19 Status: Acute Assessment and Plan: likely cause of colitis and GI symptoms with nausea. Zofran started today for her nausea. COVID-19 positive on 07/04/2021. symptom onset was prior to admission. She has no respiratory symptoms so we did not start any steroids or remdesivir. (2) NICHOLE (acute kidney injury): Code(s): N17.9 - Acute kidney failure, unspecified Status: Acute Assessment and Plan: likely prerenal, Resolved with IV fluids (3) Colitis: Code(s): K52.9 - Noninfective gastroenteritis and colitis, unspecified Status: Acute Assessment and Plan: likely secondary to COVID-19 (4) Polyarthritis of multiple sites: Code(s): M13.0 - Polyarthritis, unspecified Status: Acute Assessment and Plan: chronic osteoarthritis which is limiting her activity level. Additional Plan Diet: Regular with Meal supplement DVT prophylaxis: Lovenox GI prophylaxis: Ppi Code status: Do not resuscitate Disposition: patient is medically stable for discharge to intermediate facility once we have approval Time Spent With Patient Time with patient: 25 - 35 minutes Subjective Date/time seen: 07/05/21 16:23 patient examined. She continues to refuse working with physical therapy. her left lower extremity pain is been evaluated with x-rays no acute fracture. She has chronic arthritis limiting her activity. Son has been notified and that she is now medically stable for discharge. We are still looking for placement in intermediate now that she is COVID-19 positive. Her antibiotics will be stopped today, COVID-19 could explain her symptoms. Patient states her diarrhea has resolved, denies fever, chills. She did endorse nausea today with vomiting and we are giving Zofran. Symptoms are likely from COVID-19. Review of Systems Review of Systems: All systems reviewed & are unremarkable except as noted in HPI and below Exam Narrative: - GENERAL: Pleasant frail elderly woman appears stated age In no acute distress - EYES: EOMI. Anicteric. - HENT: Moist mucous membranes. - LUNGS: Clear to auscultation bilaterally, no wheezing, rhonchi, or rales. - CARDIOVASCULAR: Regular rate and rhythm. No murmur. - ABDOMEN: Soft, non-tender and non-distended. No palpable masses. - EXTREMITIES: No edema, Thin extremities. Peripheral pulses 2+. multiple dry lesions on her lower extremities patient states are chronic. bandage on 2nd digit left foot. - NEUROLOGIC: No focal neurological deficits. CN II-XII grossly intact. - PSYCHIATRIC: Awake, Alert. Appropriate mood and affect. - SKIN: Warm. lesions as above Objective Data Vital Signs Vital Signs: Vital Signs - 24 hr 07/04/21 20:00 07/04/21 20:30 07/05/21 00:38 Temperature 36.5 C 36.3 C L Pulse Rate 62 62 57 L Respiratory Rate 18 18 Blood Pressure 145/67 H 156/58 H Pulse Oximetry 91 95 07/05/21 05:00 07/05/21 08:57 07/05/21 09:51 Temperature 36.4 C 36.8 C Pulse Rate 60 55 L 70 Respiratory Rate 18 12 Blood Pressure 149/72 H 162/59 H Pulse Oximetry 93 95 07/05/21 12:47 Temperature 37.2 C Pulse Rate 59 L Respiratory Rate 14 Blood Pressure 182/61 H Pulse Oximetry 97 Intake/Output Intake/Output: Intake & Output 07/02/21 07/03/21 07/04/21 07/05/21 23:59 23:59 23:59 23:59 Intake Total 2195 7138 078 5112 Output Total 300 Balance 2195 1080 840 750 Meds/Results Medications: Active Medications Generic Name Dose Route Start Last Admin Trade Name Freq PRN Reason Stop Dose Admin Acetaminophen/Aspirin/Caffeine 1 tablet 07/02/21 03:33 07/04/21 03:35 Acetaminophen/Aspirin/Caffeine 250-250-65 Mg Tablet PO 1 tablet Q4-6H PRN Administration Headache Hydrocodone Bitart/Acetaminophen 1 tab 07/02/21 03:33 07/05/21 02:39 Hydrocodone/Acetaminophen (*Crx) 7.5-325 Mg Tablet PO 1 tab Q8H PRN Admin
[2021-07-05] MEDS: MELATONIN 5 MG TABLET PO (21:08)
[2021-07-06] VITALS (7 sets, daily range): BP systolic 114–163; BP diastolic 60–72; PULSE 58–68; RESP 12–18; TEMP 36.3–37.3; O2SAT 91–96
[2021-07-06 00:34] LABS: SARS-CoV-2 RNA PCR Positive
[2021-07-06] MEDS: HYDROcodone/acetaminophen (*CRX) 7.5-325 MG TABLET 1 TAB PO (04:05)
[2021-07-06] MEDS: OPTI-GEN TAB 1 TABLET PO (08:48)
[2021-07-06] MEDS: ENOXAPARIN 30 MG/0.3 ML SYRINGE SUB-Q (08:48)
[2021-07-06] MEDS: MULTIVITAMINS /C LUTEIN (CENTRUM SILVER) TABLET *BKC 1 TAB PO (08:48)
[2021-07-06] MEDS: carvediloL 12.5 MG TABLET PO (08:49)
[2021-07-06] MEDS: SILVERGEL (ELTA) 45 ML 1 APPLIC TOPICAL (08:49)
[2021-07-06] MEDS: PANTOPRAZOLE 40 MG TABLET PO (08:49)
[2021-07-06] MEDS: ATORVASTATIN 40 MG TABLET PO (08:49)
--- NOTE | 2021-07-06 12:34 | PM.IMPN ---
Progress Note: A&P Assessment and Plan (1) COVID-19: Code(s): U07.1 - COVID-19 Status: Acute Assessment and Plan: -COVID-19 positive 07/04/2021, continue quarantine measures -Asymptomatic -zofran for nausea (2) NICHOLE (acute kidney injury): Code(s): N17.9 - Acute kidney failure, unspecified Status: Acute Assessment and Plan: Resolved (3) Diarrhea: Qualifiers: Diarrhea type: unspecified type Qualified Code(s): R19.7 - Diarrhea, unspecified Code(s): R19.7 - Diarrhea, unspecified Status: Acute Assessment and Plan: Resolved (4) Colitis: Code(s): K52.9 - Noninfective gastroenteritis and colitis, unspecified Status: Acute Assessment and Plan: Resolved Additional Plan Diet: Regular with Meal supplement DVT prophylaxis: Lovenox GI prophylaxis: Ppi Code status: Do not resuscitate Disposition: patient is medically stable for discharge to long-term facility once we have approval Time Spent With Patient Time with patient: 15 - 25 minutes Subjective Date/time seen: 07/06/21 12:34 Patient examined. She is doing well no new problems. Plan for discharge later today or tomorrow. Arranging with shoe caser for disposition. Patient denies fever, chills, nausea, vomiting, diarrhea. Review of Systems Review of Systems: All systems reviewed & are unremarkable except as noted in HPI and below Exam Narrative: - GENERAL: pleasant frail elderly woman appears stated age, in no acute distress - EYES: EOMI. Anicteric. - HENT: Moist mucous membranes. - LUNGS: Clear to auscultation bilaterally, no wheezing, rhonchi, or rales. - CARDIOVASCULAR: Regular rate and rhythm. No murmur. - ABDOMEN: Soft, non-tender and non-distended. No palpable masses. - EXTREMITIES: No edema, Thin extremities. Peripheral pulses 2+. chronic dry ulcerative lesions on her lower extremities - NEUROLOGIC: No focal neurological deficits. CN II-XII grossly intact. - PSYCHIATRIC: Awake, Alert. Appropriate mood and affect. - SKIN: Warm. lesions as above Objective Data Vital Signs Vital Signs: Vital Signs - 24 hr 07/05/21 12:47 07/05/21 17:21 07/05/21 20:00 Temperature 37.2 C 36.9 C 36.4 C L Pulse Rate 59 L 56 L 69 Respiratory Rate 14 12 18 Blood Pressure 182/61 H 151/58 H 119/55 L Pulse Oximetry 97 92 92 07/06/21 00:00 07/06/21 04:00 07/06/21 08:23 Temperature 36.3 C L 36.4 C L 36.9 C Pulse Rate 58 L 59 L 67 Respiratory Rate 18 18 14 Blood Pressure 147/61 H 156/60 H 163/66 H Pulse Oximetry 91 92 95 07/06/21 08:49 07/06/21 12:00 Temperature 36.7 C Pulse Rate 64 68 Respiratory Rate 14 Blood Pressure 120/60 Pulse Oximetry 93 Intake/Output Intake/Output: Intake & Output 07/03/21 07/04/21 07/05/21 07/06/21 23:59 23:59 23:59 23:59 Intake Total 1784 225 3020 140 Output Total 300 Balance 1080 840 990 140 Meds/Results Medications: Active Medications Generic Name Dose Route Start Last Admin Trade Name Freq PRN Reason Stop Dose Admin Acetaminophen/Aspirin/Caffeine 1 tablet 07/02/21 03:33 07/04/21 03:35 Acetaminophen/Aspirin/Caffeine 250-250-65 Mg Tablet PO 1 tablet Q4-6H PRN Administration Headache Hydrocodone Bitart/Acetaminophen 1 tab 07/02/21 03:33 07/06/21 04:05 Hydrocodone/Acetaminophen (*Crx) 7.5-325 Mg Tablet PO 1 tab Q8H PRN Administration Pain Rated 4-6 Atorvastatin Calcium 40 mg 07/02/21 09:00 07/06/21 08:49 Atorvastatin 40 Mg Tablet PO 40 mg DAILY DAHIANA Administration Carvedilol 12.5 mg 07/02/21 09:00 07/06/21 08:49 Carvedilol 12.5 Mg Tablet PO 12.5 mg Q12HR DAHIANA Administration Enoxaparin Sodium 30 mg 07/02/21 09:00 07/06/21 08:48 Enoxaparin 30 Mg/0.3 Ml Syringe SUB-Q 30 mg DAILY DAHIANA Administration Hydralazine HCl 10 mg 07/05/21 16:24 Hydralazine Hcl 20 Mg/Ml Vial IV PUSH Q8H PRN Blood Pressure - High Melatonin 5 mg 07/02/21 21:00 08
--- NOTE | 2021-07-06 13:55 | PCPTNOTE ---
Patient refused treatment this session due to being too tired and weak. Educated Pt on the importance of therapy and of getting up. Pt stated I am just too weak. I know you're here to help me but I have been like this for the last 3 years. I just can't do it today. Will continue with POC and recommend downgrading to 2-3/wk until Pt feels stronger and is willing to participate.
--- NOTE | 2021-07-06 15:58 | PM.DS ---
DS: Admitting Diagnosis Admitting Diagnosis Colitis DS: Discharge Diagnosis Discharge Diagnosis (1) COVID-19: Code(s): U07.1 - COVID-19 Status: Acute Assessment and Plan: -positive test 07/04/2021 -symptoms were colitis, no respiratory symptoms -quarantine for 2 weeks from positive test (2) NICHOLE (acute kidney injury): Code(s): N17.9 - Acute kidney failure, unspecified Status: Acute Assessment and Plan: NICHOLE improved with IV fluids, likely prerenal from diarrhea (3) Left bundle branch block: Code(s): I44.7 - Left bundle-branch block, unspecified Status: Acute Assessment and Plan: Longstanding (4) Colitis: Code(s): K52.9 - Noninfective gastroenteritis and colitis, unspecified Status: Acute Assessment and Plan: Likely secondary to COVID-19, completed antibiotics Levaquin and Flagyl for 3 days until COVID 19 results returned (5) Diarrhea: Qualifiers: Diarrhea type: unspecified type Qualified Code(s): R19.7 - Diarrhea, unspecified Code(s): R19.7 - Diarrhea, unspecified Status: Acute Assessment and Plan: Resolved (6) Acute dehydration: Code(s): E86.0 - Dehydration Status: Acute Assessment and Plan: Resolved DS: Summary Hospital Course Reason for hospitalization: Colitis Hospital Course: Patient is an 86-year-old female with past medical history of left bundle-branch block, osteoarthritis, history of cervical cancer presents to ED with complaints of generalized weakness and diarrhea for couple days. Patient has had history of getting colitis, in the ER she was found to have colitis again. She was started on Levaquin Flagyl for right-sided colitis seen on CT scan, completed 3 days of antibiotics. She was then found to be COVID-19 positive on routine check for half-way facility placement. Her diarrhea and colitis likely from COVID-19. She had resolution of diarrhea. NICHOLE improved with IV fluids. She refused to work with physical therapy because of left knee and foot pain. X-rays were obtained showing chronic osteopenia, no fractures. Her symptoms have resolved and she is feeling much better and started working with therapists. Patient will go to half-way facility for continued care until she is more independent. Status at Discharge Cognitive/behavioral status at discharge: At baseline, history of dementia Functional status at discharge: uses cane/walker Overall status at discharge: patient is back to baseline Time Spent with Patient Time attestation: Total time spent providing and/or coordinating discharge services:35 Time spent: Greater than 30 minutes Exam Narrative: - GENERAL: pleasant frail elderly woman appears stated age, in no acute distress - EYES: EOMI. Anicteric. - HENT: Moist mucous membranes. - LUNGS: Clear to auscultation bilaterally, no wheezing, rhonchi, or rales. - CARDIOVASCULAR: Regular rate and rhythm. No murmur. - ABDOMEN: Soft, non-tender and non-distended. No palpable masses. - EXTREMITIES: No edema, Thin extremities. Peripheral pulses 2+. chronic dry ulcerative lesions on her lower extremities - NEUROLOGIC: No focal neurological deficits. CN II-XII grossly intact. - PSYCHIATRIC: Awake, Alert. Appropriate mood and affect. - SKIN: Warm. lesions as above DS: Data Data Completed and Pending Labs on day of discharge: Labs from last 24 hours 07/04/21 17:53 SARS-CoV-2 RNA (RT-PCR) Positive Discharge Plan Discharge Attending physician on discharge: Milad Fernández Discharging Clinician: Milad Fernández Anticipated Discharge Date/Time: 07/06/21 15:55 Patient Disposition: SNF Activity: march shower Diet: regular Discharge Instructions: -COVID-19 diagnosed 07/04/2021, please quarantine for 2 weeks -your diarrhea and colitis was likely secondary to the COVID-19, your kidneys were dehydrated and now improved. -without x
== END 2021-07-06 20:15 ==
LOC: ANHED 07-02 01:16 → ANH2MED 07-02 17:15 → ANH3MEDSUR 07-06 15:58 → ANH2MED 07-09 10:26 → ANH3MEDSUR 07-09 10:26
PROVIDERS: Admitting Provider Internal Medicine; Emergency Provider Emergency Medicine; PCP Internal Medicine; Visit Provider Student in an Organized Health Care Education/Training Program
DX: U07.1 COVID-19 (principal); N17.9 Acute kidney failure, unspecified; I44.7 Left bundle-branch block, unspecified; K52.9 Noninfective gastroenteritis and colitis, unspecified; M17.12 Unilateral primary osteoarthritis, left knee; E86.0 Dehydration; I10 Essential (primary) hypertension; I73.9 Peripheral vascular disease, unspecified; R01.1 Cardiac murmur, unspecified; R53.1 Weakness; R10.9 Unspecified abdominal pain; R94.31 Abnormal electrocardiogram [ECG] [EKG]; L98.499 Non-pressure chronic ulcer of skin of other sites with unspecified severity; F03.90 Unspecified dementia, unspecified severity, without behavioral disturbance, psychotic disturbance, mood disturbance, and anxiety; K21.9 Gastro-esophageal reflux disease without esophagitis; H91.90 Unspecified hearing loss, unspecified ear; E78.5 Hyperlipidemia, unspecified; K44.9 Diaphragmatic hernia without obstruction or gangrene; E04.2 Nontoxic multinodular goiter; I82.409 Acute embolism and thrombosis of unspecified deep veins of unspecified lower extremity; M85.89 Other specified disorders of bone density and structure, multiple sites; M11.262 Other chondrocalcinosis, left knee; M77.32 Calcaneal spur, left foot; M20.12 Hallux valgus (acquired), left foot; M21.612 Bunion of left foot; Z87.891 Personal history of nicotine dependence; Z79.84 Long term (current) use of oral hypoglycemic drugs; Z79.1 Long term (current) use of non-steroidal anti-inflammatories (NSAID); Z79.82 Long term (current) use of aspirin; Z79.899 Other long term (current) drug therapy; Z90.49 Acquired absence of other specified parts of digestive tract; Z80.0 Family history of malignant neoplasm of digestive organs; Z85.41 Personal history of malignant neoplasm of cervix uteri
CPT/HCPCS: 36415; 51701; 71045; 73562; 73620; 74176; 80048; 80053; 81001; 83605; 85025; 85027; 85055; 87426; 93005; 96361; 96365; 96366; 96367; 96372; 96375; 96376; 97110; 97161; 97165; 97530; 97535; 99285; A9270; C9803; G0378; J1650; J1956; J2405; J7030; U0003; U0005

== ENCOUNTER 2021-08-04 02:35 | Observation (INO) | payer MEDICARE, SELFPAY ==
[2021-08-04] VITALS (16 sets, daily range): BP systolic 116–185; BP diastolic 57–96; PULSE 62–83; RESP 14–23; TEMP 36.2–37.2; O2SAT 95–97; BMI 18.6
--- NOTE | ~2021-08-04 | XR_ITS ---
EXAMINATION: XR retrograde pyelogram RT DATE: 08/04/2021 10:05 INDICATION: Right-sided ureteral stone removal TECHNIQUE: A fluoroscopic images of the right pelvis were obtained during urologic procedure performe d by Dr. Roth. Radiologist was not present for the imaging or procedure. The amount of fluoroscopy time used during this procedure was 0.2 minutes. COMPARISON: None. FINDINGS: Retrograde contrast injection into the right ureter demonstrates a small filling defect at the ureter ovesicular junction on the initial image which could represent either a gas bubble or stone. It appea rs larger than the tiny stone seen on the prior CT and would favor the former. Additional gas bubbles seen on the subsequent images in the more proximal ureter which appear to change in size and morphol ogy on multiple images. The visualized mid right ureter is otherwise unremarkable aside from a kink i n the course of the distal ureter. IMPRESSION: 1. Fluoroscopy utilized during reported right ureteral stone extraction. See procedure note for furth er detail. Reviewed, dictated and finalized at location A. IMPRESSION: 1. Fluoroscopy utilized during reported right ureteral stone extraction. See pr ocedure note for further detail.
--- NOTE | ~2021-08-04 | CT_ITS ---
EXAMINATION: CT abdomen pelvis w con DATE: 08/04/2021 03:45 INDICATION: Abdominal pain. Nausea and vomiting. TECHNIQUE: Computed tomography (CT) of the abdomen and pelvis was performed with 100 mL Omnipaque 350 intravenous contrast. Automated exposure control and iterative reconstruction technique were employe d. The dose-length product was 240.04 mGy-cm. COMPARISON: CT abdomen and pelvis 07/02/2021 FINDINGS: The visualized portions of the lung bases demonstrate mild atelectasis. There is a small le ft pleural effusion. The heart size is normal. There are calcifications of the aortic valve. No peric ardial effusion. There is a large sliding hiatal hernia. The common duct is dilated to 15 mm. There i s moderate intrahepatic biliary duct dilatation, worst in the left hepatic lobe, which is small. Pneu mobilia is noted, likely from sphincterotomy. There are changes of cholecystectomy. There is a 5 mm c ystic lesion in the pancreas, likely benign. The adrenal glands are normal. There is cortical thinnin g of the kidneys. There is moderate right hydronephrosis and hydroureter. There is a 2 mm stone in di stal right ureter. Again seen is a 2.3 cm subcutaneous hematoma superficial to right common femoral a rtery. There are no dilated loops of bowel. The appendix is not visualized. There is calcified athero sclerosis of the aorta and many of the other arteries. 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 Pelvic floor relaxation is noted. There is edema of the intra-abdominal fat an d body wall fat. There is severe lumbar spondylosis. IMPRESSION: 1. 2 mm stone in distal right ureter with new moderate right hydroureter. 2. Large sliding hiatal hernia. 3. Small left pleural effusion. 4. Stable moderate intrahepatic and extrahepatic biliary duct dilatation status post cholecystectomy, likely not clinically significant given the normal liver function tests. Reviewed, dictated and finalized at location A.
--- NOTE | 2021-08-04 02:46 | ED.GENADULT ---
HPI - General Adult General Chief complaint: Abdominal Pain Stated complaint: abd pain Source: RN notes reviewed History of Present Illness HPI narrative: Patient presents emergency department from [facility] via EMS for abdominal pain. Patient states that symptoms began tonight around 7 PM the pain is located in the right lower and right upper quadrant described as sharp and stabbing. Associate with nausea. Patient denies any fevers or chills, chest pain, shortness of breath, vomiting diarrhea or any other symptoms. Patient was given fentanyl and Zofran by EMS Related Data Home Medications Medication Instructions Recorded Confirmed glucosamine MMd-Q8-[id number] 1 tablet PO DAILY 10/10/20 07/02/21 karol 1,500 mg-400 unit-100 mg tablet wtjedyaj-qdn-wswna acid 0.4 1 tablet PO DAILY 10/10/20 07/02/21 mg-lycopene 300 mcg-lutein 250 mcg tablet naproxen sodium 220 mg capsule 220 mg PO BID PRN 10/10/20 07/02/21 cyrabwl-krnbmhwcgcjrs-thrpxuxd 250 1 tablet PO Q4-6H PRN 12/13/20 07/02/21 mg-250 mg-65 mg tablet krill 350 mg-omega-3 90 mg-dha 24 1 cap PO DAILY 12/13/20 07/02/21 mg-epa 50 ei-kneirsz-sgrlk capsule losartan 50 mg tablet 50 mg PO DAILY 12/13/20 07/02/21 melatonin 5 mg capsule 5 mg PO .daily at HS cap 12/13/20 07/02/21 vit C,E,zinc,copper-jxskr3e 250 1 cap PO DAILY 12/13/20 07/02/21 mg-lutein 5 mg-zeaxanthin 1 mg capsule atorvastatin [Lipitor] 40 mg PO DAILY 07/02/21 07/02/21 carvedilol [Coreg] 12.5 mg PO BID 07/02/21 07/02/21 Allergies Allergy/AdvReac Type Severity Reaction Status Date / Time Penicillins Allergy Unknown Weakness Verified 07/01/21 21:22 Review of Systems Review of Systems: Gen.: Denies fevers or chills ENT: Denies congestion Respiratory: Denies shortness of breath or cough CV: Denies chest pain or palpitations GI: See HPI denies burning, urgency, frequency or hematuria Musculoskeletal: Denies back pain or muscle pain Neuro: Denies numbness, tingling, weakness or focal weakness Skin: Denies rash Except as documented, all other systems reviewed and negative [facility] Past Medical History Medical History Arthritis History of cervical cancer History of headache Surgical History Surgical History History of laparoscopic cholecystectomy Family History Family History Father Carcinoma of colon Grandparent Carcinoma of colon Grandparent Tuberculosis Social History Social History Smoking status: Former smoker Substance use: former Substance use type: does not use Gender identity (if verbalized by the patient): Female Spiritual care concerns: No Exam Narrative: APPEARANCE: No acute distress, nontoxic, resting in bed HEENT: Normocephalic, atraumatic, OMM RESPIRATORY: No respiratory distress, clear to auscultation bilaterally with no rhonchi wheezing or rales CARDIOVASCULAR: RRR s murmur ABDOMINAL: Soft nondistended, tender to palpation right upper quadrant right lower quadrant no tenderness left upper quadrant left lower quadrant positive percussion tenderness right lower quadrant MUSCULOSKELETAl: Moves all extremities. No clubbing, cyanosis or edema. NEURO: Awake and alert. Following commands, speech normal, no focal deficits SKIN:: Warm, dry. Normal Color PSYCHIATRIC: Normal affect/mood Course Course Emergency Course: Called and discussed with Dr. Roth presentation work-up agrees with plan for admission and antibiotics request patient be n.p.o. for possible intervention in a.m. Discussed with Dr. Juarez presentation work-up agrees with admission at this time Discussed with patient and family results of workup and diagnosis. Discussed need for admission. Patient and family understand and agree to c
[2021-08-04 02:58] LABS: Basophils Percent Auto 0.4 % (0.2-1.2); Eosinophils Absolute Auto 0.3 K/mm3 (0-0.3); Eosinophils Percent Auto 3.4 % (0-4.4); Hematocrit 36.1 % (37.0-47.0); Hemoglobin 11.6 g/dL (12.0-15.0); Immature Granulocyte Absolute 0.03 K/mm3 (0.00-0.031); Immature Granulocyte Percent A 0.4 % (0-0.5); Lymphocytes Absolute Auto 1.28 K/mm3 (0.9-3.2); Lymphocytes Percent Auto 16.3 % (18.3-44.2); Mean Corpuscular HGB Conc 32.1 g/dl (32-36); Mean Corpuscular Hemoglobin 32.3 pg (26-34); Mean Corpuscular Volume 100.6 fl (80-100); Mean Platelet Volume 10.2 fl (7.4-10.4); Monocytes Absolute Auto 0.6 K/mm3 (0.1-0.6); Monocytes Percent Auto 7.6 % (2.6-8.5); Neutrophils Absolute Auto 5.7 K/mm3 (1.3-6.7); Neutrophils Percent Auto 71.9 % (45.5-73.1); Platelet Count Result 206 k/mm3 (150-375); Red Blood Count 3.59 M/mm3 (4.2-5.4); Red Cell Distribution Width 12.8 % (11.5-14.5); White Blood Count 7.9 K/mm3 (4.5-10.0)
[2021-08-04] MEDS: SODIUM CHLORIDE 0.9% IV 1,000 ML 999 ML IV CONT (03:01)
[2021-08-04 03:15] LABS: Alanine Aminotransferase 16 U/L (4-35); Albumin Level 3.1 g/dL (3.5-5.1); Alkaline Phosphatase 81 U/L (38-126); Anion Gap 6 mmol/L (8-16); Aspartate Amino Transferase 28 U/L (14-36); Bilirubin,Total 0.2 mg/dL (0.2-1.3); Blood Urea Nitrogen 29 mg/dL (7-17); Calcium 8.4 mg/dL (8.4-10.2); Carbon Dioxide 25 mmol/L (22-30); Chloride 109 mmol/L (98-107); Estimated Glomerular Filt Rate 59; Glucose 126 mg/dL (65-110); Lipase 248 U/L (23-300); Potassium 4.1 mmol/L (3.4-5.0); Sodium 140 mmol/L (137-145)
[2021-08-04 03:35] LABS: Add Urine Microscopic? YES; Appearance Urine Clear (Clear); Bacteria Urine Trace /hpf; Bilirubin Urine Negative (Negative); Blood Urine 3+ (Negative); Color Urine Yellow (Yellow); Glucose Urine UA Negative (Negative); Ketones Urine Negative (Negative); Leukocyte Esterase Ur Trace LEU/UL (Negative); Mucus Urine Rare /lpf; Nitrate Urine Negative (Negative); Protein Urine 2+ mg/dL (Negative); RBC Urine >75 /hpf (0-2); Specific Grav Ur 1.016 (1.001-1.035); Squamous Epithelial Cell Urine Rare /hpf (Few); Urobilinogen Urine Negative mg/dL (<2.0); WBC Urine 16-20 /hpf
[2021-08-04] MEDS: MORPHINE SULFATE (*CRX) 2 MG/ML INJ IV PUSH (04:43)
[2021-08-04] MEDS: PROMETHAZINE HCL 25 MG/ML AMPUL 12.5 MG IV PUSH (05:26)
[2021-08-04] MEDS: SODIUM CHLORIDE 0.9% IV 50 ML 100 ML (05:27)
--- NOTE | 2021-08-04 06:23 | ADMGEN ---
This patient, Renee Bautista, was admitted to 2 Medical Room 260-01. Patient/family oriented to hospital policies and general routines including ID bracelet, bed and alarms, visiting hours, pain management, procedures, bathroom and other care routines, personal items, smoking policy, room service/diet, and visiting hours. Information on how to activate the Rapid Response Team has been discussed. Patient/Family are encouraged to report perceived risks to care and to ask questions if they do not understand what they are told or what they should do.
[2021-08-04] MEDS: SODIUM CHLORIDE 0.9% IV 1,000 ML 125 ML IV CONT (06:40)
--- NOTE | 2021-08-04 09:30 | WPDANESEPPF ---
Anes - Initial Pre Proc Eval Procedure: Operation Date: 08/04/21 09:30 Proposed Procedures p Cysto, RPG, Stone Ext, Stent Placement(Right) - Lanre Roth MD Date/Time: 08/04/21 09:30 Surgeon: Kathy Toledo PA-C Pre Op Diagnosis: Right Side Kidney Stone,UTI,Right Hydronephrosis Patient Data Age: 86 Gender: F Height: 1.63 m Weight: 49.3 kg Last Vital Signs Temp 36.2 C L 08/04/21 06:48 Pulse 81 08/04/21 06:48 Resp 18 08/04/21 06:48 BP 161/81 H 08/04/21 06:48 Pulse Ox 96 08/04/21 06:48 Allergies Allergy/AdvReac Type Severity Reaction Status Date / Time Penicillins Allergy Unknown Weakness Verified 08/04/21 06:50 Home Medications Medication Instructions Recorded Confirmed Type glucosamine UKg-C1-Wnjygqvuk 1 tablet PO DAILY 10/10/20 08/04/21 History karol 1,500 mg-400 unit-100 mg tablet scdtekdl-ffa-gblpa acid 0.4 1 tablet PO DAILY 10/10/20 08/04/21 History mg-lycopene 300 mcg-lutein 250 mcg tablet naproxen sodium 220 mg capsule 220 mg PO BID PRN 10/10/20 08/04/21 History wvzzwmc-ouiopthssjdwi-whbxawxe 250 1 tablet PO Q4-6H PRN 12/13/20 08/04/21 History mg-250 mg-65 mg tablet glucosamine 750 ds-eatxlshmcmt-sxg 1 tablet PO BID #60 tablet 12/13/20 08/04/21 Rx no1 644 mg-C 30 mg-elissa 1 mg tablet krill 350 mg-omega-3 90 mg-dha 24 1 cap PO DAILY 12/13/20 08/04/21 History mg-epa 50 eq-yxsnasn-qwvsh capsule losartan 50 mg tablet 50 mg PO DAILY 12/13/20 08/04/21 History melatonin 5 mg capsule 5 mg PO HS cap 12/13/20 08/04/21 History vit C,E,zinc,copper-mrkud4t 250 1 cap PO DAILY 12/13/20 08/04/21 History mg-lutein 5 mg-zeaxanthin 1 mg capsule atorvastatin [Lipitor] 40 mg PO DAILY 07/02/21 08/04/21 History carvedilol [Coreg] 12.5 mg PO BID 07/02/21 08/04/21 History hydrocodone-acetaminophen 1 tablet PO Q8H PRN #7 tablet 07/06/21 08/04/21 Rx omeprazole 40 mg capsule,delayed 40 mg PO DAILY #90 cap 07/15/21 08/04/21 Rx release Laboratory Tests 08/04/21 08/04/21 08/04/21 02:53 02:54 02:54 WBC 7.9 K/mm3 K/mm3 (4.5-10.0) RBC 3.59 M/mm3 L M/mm3 (4.2-5.4) Hgb 11.6 g/dL L g/dL (12.0-15.0) Hct 36.1 % L % (37.0-47.0) MCV 100.6 fl H fl (80-100) MCH 32.3 pg pg (26-34) MCHC 32.1 g/dl g/dl (32-36) RDW 12.8 % % (11.5-14.5) Plt Count 206 k/mm3 D k/mm3 (150-375) MPV 10.2 fl fl (7.4-10.4) Immature Gran % (Auto) 0.4 % % (0-0.5) Neut % (Auto) 71.9 % % (45.5-73.1) Lymph % (Auto) 16.3 % L % (18.3-44.2) [place] % (Auto) 7.6 % % (2.6-8.5) Eos % (Auto) 3.4 % % (0-4.4) Baso % (Auto) 0.4 % % (0.2-1.2) Lymph # (Auto) 1.28 K/mm3 K/mm3 (0.9-3.2) [place] # (Auto) 0.6 K/mm3 K/mm3 (0.1-0.6) Eos # (Auto) 0.3 K/mm3 K/mm3 (0-0.3) Baso # (Auto) 0.0 K/mm3 K/mm3 (0.0-0.1) Abs Immat Gran (auto) 0.03 K/mm3 K/mm3 (0.00-0.031) Absolute Neuts (auto) 5.7 K/mm3 K/mm3 (1.3-6.7) Absolute Nucleated RBC 0.0 K/mm3 K/mm3 (0.0-0.012) Nucleated RBC % 0.0 % % (0.0-0.2) Sodium 140 mmol/L mmol/L (137-145) Potassium 4.1 mmol/L mmol/L (3.4-5.0) Chloride 109 mmol/L H mmol/L (98-107) Carbon Dioxide 25 mmol/L mmol/L (22-30) Anion Gap 6 mmol/L L mmol/L (8-16) BUN 29 mg/dL H mg/dL (7-17) Creatinine 0.90 mg/dL mg/dL (0.7-1.0) Estim Creat Clear Calc Not Reportable Estimated GFR 59 (59 - ) Glucose 126 mg/dL H mg/dL (65-110) Hemoglobin A1c 5.0 % % (<5.7) Calcium 8.4 mg/dL mg/dL (8.4-10.2) Total Bilirubin 0.2 mg/dL mg/dL (0.2-1.3) AST 28 U/L U/L (14-36) ALT 16 U/L U/L (4-35) Alkaline Phosphatase 81 U/L U/L (38-126) Total Protein 6.0 g/dL L g/d
--- NOTE | 2021-08-04 09:36 | WPDURCON ---
Assessment and Plan Assessment and plan (1) Ureteral stone: Code(s): N20.1 - Calculus of ureter Status: Acute Assessment and Plan: We will plan intervention for her stone. Consent was obtained from her son as well as the patient. She understands risks of bleeding, infection, damage to the urinary tract, inability remove the stone, the chance that the stone has already passed, risks of anesthesia. They agreed to proceed. Will likely leave a stent in place due to the hydronephrosis. Will remove as an outpatient (2) Hydronephrosis: Qualifiers: Hydronephrosis type: with renal calculous obstruction Qualified Code(s): N13.2 - Hydronephrosis with renal and ureteral calculous obstruction Code(s): N13.30 - Unspecified hydronephrosis Status: Acute (3) Abnormal urinalysis: Code(s): R82.90 - Unspecified abnormal findings in urine Status: Acute Assessment and Plan: Urine culture pending. Does have white cells and trace bacteria. Can potentially be discharged on empiric antibiotics. Urology Consult Note HPI Date Seen: 08/04/21 Requesting Physician: Kathy Toledo PA-C Primary Care Provider: Lalo Schwartz DO Consult Narrative Narrative: Renee Bautista is a 86 year old female with no prior history of stone disease. She was brought in from her shelter via ambulance last night for acute onset of right lower quadrant pain. It radiated up to the flank and to the suprapubic area. She endorsed some nausea without vomiting. Her pain was difficult to control with fentanyl. She was admitted for further management as her urinalysis is abnormal as well. She has white cells and bacteria. She does not have prominent urinary tract infection symptoms. She denies dysuria or fevers. She does endorse obstructive urinary symptoms and inability to feel like she is emptying her bladder. Her CT scan shows a small right distal ureteral stone. There is significant hydronephrosis proximal to the stone. I discussed with the patient and her son. In light of her urine specimen and significant hydronephrosis we opted for intervention for the stone. Review of Systems Review of Systems: All systems reviewed & are unremarkable except as noted in HPI and below PMFSH Past Medical History Medical History (Updated 08/04/21 @ 09:44 by Lanre Roth MD) Aortic stenosis Arthritis Essential (primary) hypertension History of cervical cancer History of headache Hydronephrosis of right kidney Left bundle branch block Surgical History Surgical History History of laparoscopic cholecystectomy Family History Family History Father Carcinoma of colon Grandparent Carcinoma of colon Grandparent Tuberculosis Social History Social History Smoking status: Unknown if ever smoked Alcohol intake: unknown Substance use: unknown Substance use type: does not use Gender identity (if verbalized by the patient): Female Spiritual care concerns: No Meds Home Medications and Allergies Home Medications Medication Instructions Recorded Confirmed Type glucosamine OTg-N0-Seyyhfbzw 1 tablet PO DAILY 10/10/20 08/04/21 History karol 1,500 mg-400 unit-100 mg tablet xptiqzvc-ats-ztjhk acid 0.4 1 tablet PO DAILY 10/10/20 08/04/21 History mg-lycopene 300 mcg-lutein 250 mcg tablet naproxen sodium 220 mg capsule 220 mg PO BID PRN 10/10/20 08/04/21 History kcqdhog-yevqlepnyvapj-fenuqgdh 250 1 tablet PO Q4-6H PRN 12/13/20 08/04/21 History mg-250 mg-65 mg tablet glucosamine 750 cl-ngwxfitdgyn-rrr 1 tablet PO BID #60 tablet 12/13/20 08/04/21 Rx no1 644 mg-C 30 mg-elissa 1 mg tablet krill 350 mg-omega-3 90 mg-dha 24 1 cap PO DAILY 12/13/20 08/04/21 History mg-epa 50 mg
--- NOTE | 2021-08-04 09:47 | WPDHPUPDATE1 ---
History and Physical Update Update Date/Time: 08/04/21 09:47 History and Physical has been reviewed, including an updated exam of the patient. There are NO changes in the patient's condition. Risks, benefits, and alternatives have been discussed and questions answered. Patient agrees to proceed with procedure.
[2021-08-04] MEDS: LIDOCAINE HCL 2% GEL UROJET 10 ML PKG MUCOUS MEM (09:58)
--- NOTE | 2021-08-04 10:03 | W.PM.PROC2 ---
Procedure Note - Detailed Date of Procedure 08/04/21 Pre-op Diagnosis Right Side ureteral Stone,Right Hydronephrosis, abnormal urinalysis Post-op Diagnosis same Procedure Performed Cystoscopy with extraction of stone. Right retrograde pyelogram Surgeon Lanre Roth MD Anesthesia MAC Indications This is a woman with a right distal ureteral stone, hydronephrosis, abnormal urinalysis. She is here today for intervention. Understands risks of bleeding, infection, damage to the urinary tract. Agrees to proceed Findings Stone seen at right ureteral orifice. I was able to be grasped with a grasper and removed. Ureter was open. Retrograde pyelogram showed no other filling defects. Prompt drainage of the right ureter. No stent was placed Description of Procedure She has correctly identified. Informed consent obtained. From the operating room. She was given MAC anesthesia. She was prepped and draped in a sterile fashion. She was placed in the dorsal thigh position. Cystoscopy revealed a moderately trabeculated bladder. There was some very small stone type debris in the bladder. I examined the right ureter. The stone was seen from the ureteral orifice. It was able to be grasped with a grasper and removed. I also irrigated out her bladder of several tiny sub 1 mm stones. I did retrograde pyelogram on the right. She had moderate hydronephrosis. There was no filling defect. I watched the ureter fluoroscopy. It was seen to drain the contrast efficiently. I elected to not leave a ureteral stent. Her bladder was drained. She was awakened and transferred to PACU in stable condition. Implants None Estimated Blood Loss 1 Drains No Packing No Pathology yes (Ureteral stone) Complications No immediate complications Condition stable Disposition PACU
[2021-08-04] MEDS: LACTATED RINGERS 1,000 ML 30 ML IV CONT (10:06)
--- NOTE | 2021-08-04 10:08 | PM.IMHP ---
H&P: HPI History of Present Illness Date/Time: 08/04/21 10:08 [facility] Past Medical History Medical History (Updated 08/04/21 @ 10:08 by Kathy Toledo PA-C) Aortic stenosis Arthritis Essential (primary) hypertension History of cervical cancer History of headache Hydronephrosis of right kidney Left bundle branch block Surgical History Surgical History History of laparoscopic cholecystectomy Family History Family History Father Carcinoma of colon Grandparent Carcinoma of colon Grandparent Tuberculosis Social History Social History Smoking status: Unknown if ever smoked Alcohol intake: unknown Substance use: unknown Substance use type: does not use Gender identity (if verbalized by the patient): Female Spiritual care concerns: No Meds Home Medications and Allergies Home Medications Medication Instructions Recorded Confirmed Type glucosamine JHn-Y5-Cnfdvzuyn 1 tablet PO DAILY 10/10/20 08/04/21 History karol 1,500 mg-400 unit-100 mg tablet pidvvoao-yah-hvcmg acid 0.4 1 tablet PO DAILY 10/10/20 08/04/21 History mg-lycopene 300 mcg-lutein 250 mcg tablet naproxen sodium 220 mg capsule 220 mg PO BID PRN 10/10/20 08/04/21 History uiglxbg-sqadiobjqfbdx-ooxtxmfy 250 1 tablet PO Q4-6H PRN 12/13/20 08/04/21 History mg-250 mg-65 mg tablet glucosamine 750 ga-bcwymfydznf-iim 1 tablet PO BID #60 tablet 12/13/20 08/04/21 Rx no1 644 mg-C 30 mg-elissa 1 mg tablet krill 350 mg-omega-3 90 mg-dha 24 1 cap PO DAILY 12/13/20 08/04/21 History mg-epa 50 iy-tegjtrf-ltvsw capsule losartan 50 mg tablet 50 mg PO DAILY 12/13/20 08/04/21 History melatonin 5 mg capsule 5 mg PO HS cap 12/13/20 08/04/21 History vit C,E,zinc,copper-runxp2u 250 1 cap PO DAILY 12/13/20 08/04/21 History mg-lutein 5 mg-zeaxanthin 1 mg capsule atorvastatin [Lipitor] 40 mg PO DAILY 07/02/21 08/04/21 History carvedilol [Coreg] 12.5 mg PO BID 07/02/21 08/04/21 History hydrocodone-acetaminophen 1 tablet PO Q8H PRN #7 tablet 07/06/21 08/04/21 Rx omeprazole 40 mg capsule,delayed 40 mg PO DAILY #90 cap 07/15/21 08/04/21 Rx release Allergies Allergy/AdvReac Type Severity Reaction Status Date / Time Penicillins Allergy Unknown Weakness Verified 08/04/21 06:50 Vital Signs Vital Signs - 24 hr 08/04/21 02:34 08/04/21 03:00 08/04/21 04:07 Temperature Pulse Rate 63 62 70 Respiratory Rate 23 H 20 20 Blood Pressure 185/82 H 166/96 H 158/70 H Pulse Oximetry 97 95 95 08/04/21 05:07 08/04/21 06:48 Temperature 97.1 F L Pulse Rate 78 81 Respiratory Rate 20 18 Blood Pressure 172/77 H 161/81 H Pulse Oximetry 95 96 H&P: Results Labs Labs: Short CBC 08/04/21 Range/Units 02:54 WBC 7.9 (4.5-10.0) K/mm3 Hgb 11.6 L (12.0-15.0) g/dL Hct 36.1 L (37.0-47.0) % Plt Count 206 D (150-375) k/mm3 BMP 08/04/21 02:54 Sodium 140 Potassium 4.1 Chloride 109 H Carbon Dioxide 25 BUN 29 H Creatinine 0.90 Glucose 126 H Calcium 8.4 Liver Function 08/04/21 Range/Units 02:54 Total Bilirubin 0.2 (0.2-1.3) mg/dL AST 28 (14-36) U/L ALT 16 (4-35) U/L Alkaline Phosphatase 81 (38-126) U/L Albumin 3.1 L (3.5-5.1) g/dL Urine 08/04/21 Range/Units 03:21 Urine Color Yellow (Yellow) Urine Appearance Clear (Clear) Urine pH 5.0 (5.0-9.0) Ur Specific [place] 1.016 (1.001-1.035) Urine Protein 2+ H (Negative) mg/dL Urine Glucose (UA) Negative (Negative) mg/dL Assessment and Plan Assessment and plan (1) Ureteral stone: Code(s): N20.1 - Calculus of ureter Status: Acute Assessment and Plan: Initial teleradiology CT report shows 2 mm stone in distal right ureter with moderate right hydroureteronephrosis. She is
[2021-08-04] MEDS: LOSARTAN POTASSIUM 50 MG TABLET PO (12:31)
[2021-08-04] MEDS: ATORVASTATIN 40 MG TABLET PO (12:31)
[2021-08-04] MEDS: MULTIVITAMINS /C LUTEIN (CENTRUM SILVER) TABLET *BKC 1 TAB PO (12:31)
[2021-08-04] MEDS: OPTI-GEN TAB 1 TABLET PO (12:31)
[2021-08-04] MEDS: NAPROXEN SODIUM 220 MG TABLET PO (12:32)
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
[2021-08-04] MEDS: carvediloL 12.5 MG TABLET PO (17:22)
== END 2021-08-04 19:10 ==
LOC: ANHED 03:32 → ANH2MED 05:46
PROVIDERS: Physician Assistant; Urology; Admitting Provider Internal Medicine; Emergency Provider Emergency Medicine; PCP Internal Medicine; Visit Provider Internal Medicine
PROC: (CPT 52352; principal; 2021-08-04 09:30)
DX: N13.2 Hydronephrosis with renal and ureteral calculous obstruction (principal); R82.90 Unspecified abnormal findings in urine; I10 Essential (primary) hypertension; I44.7 Left bundle-branch block, unspecified; I35.0 Nonrheumatic aortic (valve) stenosis; I73.9 Peripheral vascular disease, unspecified; Z87.891 Personal history of nicotine dependence; Z85.41 Personal history of malignant neoplasm of cervix uteri; Z79.899 Other long term (current) drug therapy
CPT/HCPCS: 52352; 36415; 51701; 74177; 74420; 80053; 81001; 82365; 83036; 83690; 85025; 87086; 87088; 88300; 96361; 96365; 96366; 96367; 96375; 99285; A9270; C1769; G0378; J0131; J1956; J2270; J2550; J2704; J7030; J7120; Q9966; Q9967

== ENCOUNTER 2024-07-17 17:36 | Emergency (ER) | payer MEDICARE, SELFPAY ==
--- NOTE | 2024-07-17 17:42 | ECG_ITS ---
Test Date: 2024-07-17 17:49:21 Measurements Intervals [place] Rate: 56 P: -1 CO: 169 QRS: -27 QRSD: 138 T: 117 QT: 457 QTc: 444 Interpretive Statements SINUS BRADYCARDIA WITH OCCASIONAL VENTRICULAR PREMATURE COMPLEXES LEFT BUNDLE BRANCH BLOCK [120+ ms QRS DURATION, 80+ ms Q/S IN V1/V2, 85+ ms R IN I/aVL/V5/V6] ABNORMAL ECG No previous ECG available for comparison Electronically Signed On 07-18-2024 10:56:31 CDT by Jose Antonio Resendiz M.D.
[2024-07-17 17:44] VITALS: BP 172/86; PULSE 62; RESP 16; TEMP 36.7; O2SAT 100
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
[2024-07-17] MEDS: methocarbamoL 750 MG TABLET PO (19:50)
== END 2024-07-17 19:54 | disposition home or self-care (01) ==
PROVIDERS: Emergency Provider Emergency Medicine; PCP Nurse Practitioner Family
DX: M79.602 Pain in left arm (principal); I35.0 Nonrheumatic aortic (valve) stenosis; I10 Essential (primary) hypertension; I73.9 Peripheral vascular disease, unspecified; M19.90 Unspecified osteoarthritis, unspecified site; Z87.891 Personal history of nicotine dependence; Z90.49 Acquired absence of other specified parts of digestive tract; R00.1 Bradycardia, unspecified; I44.7 Left bundle-branch block, unspecified; Z79.899 Other long term (current) drug therapy
CPT/HCPCS: 93005; 99283; A9270

== ENCOUNTER 2025-02-20 16:02 | Inpatient (IN) | payer MEDICARE, SELFPAY ==
--- NOTE | ~2025-02-20 | CT_ITS ---
EXAMINATION: CT abdomen pelvis w con DATE: 02/20/2025 20:51 INDICATION: lower abdominal pain, N/V TECHNIQUE: Computed tomography (CT) of the abdomen and pelvis was performed with 100 mL Omnipaque-350 intravenous contrast. Automated exposure control and iterative reconstruction technique were employe d. The dose-length product was 221.07 mGy-cm. COMPARISON: 08/04/2021. FINDINGS: Lower thorax: Cardiomegaly. Coronary artery and aortic valve, and mitral calcification. Trace left pl eural effusion. Liver: Pneumobilia. Biliary/Gallbladder: Gallbladder is absent. Stable intra and extrahepatic bile duct dilation. Pancreas: 6 mm pancreatic head cyst. Stable pancreatic duct dilation. Spleen: Normal. Adrenals:No mass. Kidneys: No suspicious mass, obstructing stone, or hydronephrosis. 11 mm indeterminate density right midpole lesion, likely hemorrhagic or proteinaceous cyst given long-term stability. Bilateral cortica l thinning. Subcentimeter right lower pole hypodensity, too small to characterize but most likely rep resents a cyst. GI tract: Moderate hiatal hernia containing approximately one half of the stomach. Moderate distal es ophageal and gastric wall edema. No small or large bowel dilation. Mild wall edema involving the colo n from the hepatic flexure to the rectum. Appendix not confidently visualized. Mesentery/Peritoneum: No ascites, mass, or free air. Mild mesenteric edema. Retroperitoneum: No mass. Atherosclerotic calcifications of intra-abdominal arterial vessels. Occlusi on of the left common iliac, internal iliac, and external iliac arteries. Distal reconstitution at th e left common femoral artery. Occlusion of the right external iliac artery, with reconstitution at th e right proximal common femoral artery. Pelvis: Normal urinary bladder. Atrophic versus surgically absent uterus. Normal bilateral ovaries. M ild free pelvic fluid. Soft Tissues: Mild diffuse body wall edema. Indurated soft tissues over the sacrum. Bones: No acute osseous finding. IMPRESSION: Trace left pleural effusion. Moderate esophagitis/gastritis. Stable intra and extrahepatic bile duct dilation, with pneumobilia, probably secondary to cholecystec inga and prior sphincterotomy. 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 Colonic wall edema from the hepatic flexure to the rectum, likely representing infectious, inflammato ry, or ischemic colitis. Body wall edema. Small volume pelvic fluid. Occlusion of the left common iliac, internal iliac, and external iliac arteries, with reconstitution at the right common femoral artery, the extent of occlusion as progressed since the prior study. Occlusion of the right external iliac artery with reconstitution at the right common femoral artery, which is a new finding. Indurated soft tissues over the sacrum, correlate clinically for sacral decubitus ulcer. Reviewed, dictated and finalized at location K. IMPRESSION: Trace left pleural effusion. Moderate esophagitis/gastritis. Stable intra and extrahepatic bile duct dilation, with pneumobilia, probably se condary to cholecystectomy and prior sphincterotomy. 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 Colonic wall edema from the hepatic flexure to the rectum, likely representing infectious, inflammatory, or ischemic colitis. Body wall edema. Small volume pelvic fluid. Occlusion of the left common iliac, internal iliac, and external iliac arteries , with reconstitution at the right common femoral artery, the extent of occlusi on as progressed since the prior study. Occlusion of the right external iliac artery with reconstitution at the right c ommon femoral artery, which is a new finding. Indurated soft tissues over the sacrum, correlate clinically for sacral decubit us ulcer.
--- NOTE | ~2025-02-20 | XR_ITS ---
XR chest 2V Ordering provider: Kathleen Roberto APRN History: 89 years Female with . cough WITH WEAKNESS . Comparison: July 01, 2021 FINDINGS: MEDIASTINUM: The cardiac silhouette is not enlarged. Sliding hiatus hernia. Device Projected over the left hemithorax which LUNGS: No infiltrates, effusions or pneumothorax. OTHER: No free air under the diaphragm. IMPRESSION: No acute cardiopulmonary pathology Reviewed, dictated and finalized at location A.
[2025-02-20 16:05] VITALS: BP 126/66; PULSE 84; RESP 15; TEMP 36.4; O2SAT 98
--- NOTE | 2025-02-20 16:14 | ECG_ITS ---
Test Date: 2025-02-20 16:55:16 Measurements Intervals [place] Rate: 76 P: -28 MT: 153 QRS: -30 QRSD: 128 T: 123 QT: 408 QTc: 461 Interpretive Statements SINUS RHYTHM LEFT BUNDLE BRANCH BLOCK [120+ ms QRS DURATION, 80+ ms Q/S IN V1/V2, 85+ ms R IN I/aVL/V5/V6] Compared to ECG 07/17/2024 17:49:21 Ventricular premature complex(es) no longer present Electronically Signed On 02-21-2025 15:57:03 CDT by Jarrod Morfin M.D.
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
[2025-02-20 17:09] LABS: Basophils Percent Auto 0.3 % (0.2-1.2); Eosinophils Percent Auto 0.5 % (0-4.4); Hematocrit 39.9 % (37.0-47.0); Hemoglobin 13.1 g/dL (12.0-15.0); Immature Granulocyte Absolute 0.01 K/mm3 (0.00-0.031); Immature Granulocyte Percent A 0.2 % (0-0.5); Immature Platelet Fraction Pct 1.9 % (0.9-11.2); Lymphocytes Absolute Auto 0.29 K/mm3 (0.9-3.2); Lymphocytes Percent Auto 5.1 % (18.3-44.2); Mean Corpuscular HGB Conc 32.8 g/dl (32-36); Mean Corpuscular Hemoglobin 32.6 pg (26-34); Mean Corpuscular Volume 99.3 fl (80-100); Mean Platelet Volume 10.3 fl (7.4-10.4); Monocytes Absolute Auto 0.4 K/mm3 (0.1-0.6); Monocytes Percent Auto 7.7 % (2.6-8.5); Neutrophils Absolute Auto 4.9 K/mm3 (1.3-6.7); Neutrophils Percent Auto 86.2 % (45.5-73.1); Platelet Count Result 130 k/mm3 (150-375); Red Blood Count 4.02 M/mm3 (4.2-5.4); Red Cell Distribution Width 13.1 % (11.5-14.5); White Blood Count 5.7 K/mm3 (4.5-10.0)
[2025-02-20 17:18] LABS: Partial Thromboplastin Time 26.1 Seconds (22.3-36.8); Prothrombin Time 13.4 Seconds (11.1-14.7)
[2025-02-20 17:43] LABS: Influenza A QL RT-PCR Negative (Negative); Influenza B QL RT-PCR Negative (Negative); RSV RNA, RT-PCR Negative (Negative); SARS-CoV-2 RNA PCR Negative (Negative)
[2025-02-20 18:11] VITALS: PULSE 73; RESP 22; O2SAT 100
[2025-02-20 18:15] VITALS: PULSE 71; RESP 22; O2SAT 99
--- OUTSIDE RECORDS SUMMARY | 2025-02-20 18:21 | XMS_ITS ---
Author Organization [facility] Care Team Providers Care Seam Steamer Name Role Phone Michael Flores Unavailable Unavailable Ampadu, Tavares Unavailable Unavailable Ampadu, Anais Unavailable Unavailable Allergies and adverse reactions Code CodeSystem Substance Reaction Severity StartDate Concern Status [id number] SNOMED CT Penicillins Mild 07/06/2021 activ e Care Team Name Role Address Phone Organization Dates Tavares Sylvester PCP [address] [place], [place], [facility], [facility] (Office): : [facility] 07/07/2021 - 07/16/2021 Michaelkyaw Flores Attending Physician [facility] [place], [place], [facility], [facility] (Office): [facility] 07/07/2021 - 07/16/2021 Anais Sylvester Attending Physician [address] [place] [address], [address] [place] [address] (Office): : [facility] 07/07/2021 - 07/16/2021 Immunizations Immunization Status Vaccine Details Vaccine Code CodeSystem Date Notes Influenza cancelled Influenza, high-dose, split virus, quadrivalent, injectable, preservative free 197 CVX created date: 07/09/2021 consent date: 07/09/2021 TB 2 Step Mantoux Skin Test completed tuberculin skin test; unspecified formulation lotNumber: [id number] expiry: 01/27/2022 Mfg: Tuberculin Given 0.1 ml Right Forearm intradermally Step 1 of Multi-step with next step required 98 CVX created date: 07/09/2021 consent date: 07/09/2021 administere d date: 07/10/2021 pneumovac 23 cancelled pneumococcal polysaccharide vaccine, 23 valent 33 CVX created date: 07/09/2021 consent date: 07/09/2021 Mental Status Section Date Assessment Total Score Description 07/16/2021 BIMS 06 severe cognitiv e impairment CAM 2 Delirium indica indra PHQ-9 15 moderately pola re depression Problems Problem # Description Date of onset Resolved Date Code CodeSystem Concern Status 1 OTHER SPECIFIED HEARING LOSS, UNSPECIFIED EAR [address] active 2 ACUTE KIDNEY FAILURE, UNSPECIFIED [address] active 3 CARDIAC MURMUR, UNSPECIFIED 26312827 SNOMED CT active 4 DEHYDRATION 021 07/08/[address] completed 5 DIARRHEA, UNSPECIFIED 021 07/08/[address] completed 6 ESSENTIAL (PRIMARY) HYPERTENSION 15871005 SNOMED CT active 7 LEFT BUNDLE-BRANCH BLOCK, UNSPECIFIED [address] active 8 NONINFECTIVE GASTROENTERITIS AND COLITIS, UNSPECIFIED [address] active 9 PERIPHERAL VASCULAR DISEASE, UNSPECIFIED [address] active 10 COVID-[address] active 11 GASTRO-ESOPHAGEAL REFLUX DISEASE WITHOUT ESOPHAGITIS [address] active 12 HYPERLIPIDEMIA, UNSPECIFIED [address] active 13 NEED FOR ASSISTANCE WITH PERSONAL CARE [id number] active 14 PRIMARY OSTEOARTHRITIS, UNSPECIFIED SITE [address] active 15 UNSPECIFIED DEMENTIA, UNSPECIFIED SEVERITY, WITHOUT BEHAVIORAL DISTURBANCE, PSYCHOTIC DISTURBANCE, MOOD DISTURBANCE, AND ANXIETY [address] active 16 WEAKNESS [address] active Reason for Referral No Reasons for Referral Entered Social History Social History Observation Description Start Date End Date Code Code System Current Smoking Status Tobacco smoking consumption unknown 683004742 SNOMED CT Sex Assigned At Female 1935 06078-1 [facility] Vital Signs Code Code System Vitals Name Values and Units Timing Information 21901-5 [facility] Pain Level Value=0.0 07/20/2021 8302-2 [facility] Height Value=61.0 Units=Inches 07/15/2021 49999-5 [facility] Weight Value=99.8 Units=Lbs 06/30 9279-1 [facility] Respiratory Rate Value=18.0 Units=/m in 07/09/2021 8867-4 [facility] Heart rate Value=66.0 Units=/min 08/2021 72705-5 [facility] O2 % BldC Oximetry Value=95.0 Units= % 07/09/2021 8462-4 [facility] Blood Pressure-Diastolic Value=64 Un its=mmHg 07/09/2021 8480-6 [facility] Blood Pressure-Systolic Ggfwc=044 Un its=mmHg 07/09/2021 8310-5 [facility] Body Temperature Value=97.6 Units= F 07/09/2021
--- OUTSIDE RECORDS SUMMARY | 2025-02-20 18:21 | XMS_ITS | Encounter Summary ---
Author Organization [facility] Address [address] [place] [address] Care Team Providers Care Circular Knife Machine Cutter Name Role Phone Bereket Cruz MD Unavailable Lalo Schwartz DO Primary Care Provider [phone] Tavares Sylvester MD Primary Care Provider [phone] Ariane Prado MD Primary Care Provider [phone] Encounter Details Date Type Department Care Team (Late st Contact Info) Description 01/14/2021 Abstract [facility] [address] Maria Isabel Castellanos MA Social History Tobacco Use Types Packs/Day Years Used Date Smoking Tobacco: Former Cigarettes 0.3 15 1 987 - 2002 Cigars Smokeless Tobacco: Never Alcohol Use Standard Drinks/Week Comments Yes 0 (1 standard drink = 0.6 oz pur e alcohol) socially Comments Unknown Sex and Gender Information Value Date Recorded Sex Assigned at Female 05/29/2020 8:40 PM CDT Legal Sex Female 10:20 AM CDT Gender Identity Female 05/29/2020 8:40 PM CDT Sexual Orientation Straight 05/29/2020 8: 40 PM CDT COVID-19 Exposure Response Date Recorded In the last month, have you been in contact with someone who was confirmed or suspected to have Coronavirus / COVID-19? No / Unsure 01/03/2021 11:40 AM OCCUPATIONAL HEALTH NURSING DIRECTOR documented as of this encounter Functional Status * RETIRED Are you deaf or do you have serious difficulty hearing Answer Date of Assessment Author Status Yes 05/29/2020 8:47 PM CDT Activ e * RETIRED Are you blind or do you have serious difficulty seeing, even when wearing glasses? Answer Date of Assessment Author Status No 05/29/2020 8:47 PM CDT Activ e * Do you have serious difficulty walking or climbing stairs? Answer Date of Assessment Author Status Yes 05/29/2020 8:47 PM CDT Leilani Stuart RN Active * Do you have difficulty dressing or bathing? Answer Date of Assessment Author Status No 05/29/2020 8:47 PM CDT Leilani Stuart RN Active * Because of a physical, mental, or emotional condition, do you have difficulty doing errands alone such as visiting a doctor's office or shopping? Answer Date of Assessment Author Status Yes 05/29/2020 8:47 PM Leilani London RN Active documented as of this encounter Mental Status * Because of a physical, mental, or emotional condition, do you have serious difficulty concentrating, remembering, or making decisions? Answer Entry Date Author Status No 05/29/2020 8:47 PM Leilani London RN Active documented in this encounter Plan of Treatment Not on file documented as of this encounter Procedures Procedure Name Priority Date/Time Associated Diagnosis Comments BNP Routine 01/11/2021 COMPREHENSIVE METABOLIC PANEL Routine 01/11/2021 LIPID PANEL Routine 01/11/2021 documented in this encounter Results * BNP (01/11/2021) B TYPE NATRIURETIC PEPTIDE 47.9 0.0 - 100 01/11/2021 [facility] Final Result * LIPID PANEL (01/11/2021) Pathologist [facility] CHOLESTEROL 207 HDL 106 TRIGLYCERIDES 98 LDL (CALCULATED) 84 01/11/2021 [facility] Final Result * (ABNORMAL) COMPREHENSIVE METABOLIC PANEL (01/11/2021) SODIUM S/P/B 146 POTASSIUM S/P/B 5.2 CO2 20 CHLORIDE S/P/B 112 GLUCOSE 89 mg/dL CALCIUM S/P/B 9.9 BUN 41 CREATININE S/P/B 1.65(A) 0.5 - 1.0 EGFR AFR. AMER. 32 <=90 EGFR NON-AFR. AMER. 28 <=90 ALKALINE PHOSPHATASE S/P/B 64 ALT 9 AST 18 BILIRUBIN TOTAL S/P/B <0.2 ALBUMIN S/P/B 4.0 3.5 - 5.0 TOTAL PROTEIN S/P/B 6.6 GLOBULIN 2.6 01/11/2021 [facility] Final Result documented in this encounter Visit Diagnoses Not on filedocumented in this encounter Care Teams Circular Knife Machine Cutter Relationship Specialty Start Date End Date Lalo Schwartz DO [address] [facility] [address] [place] [address] PCP - General INTERNAL MEDICINE 12/31/20 08/05/22 Tavares Sylvester MD [address] [place] [address] PCP - General INTERNAL MEDICINE 08/06/22 11/29/22 Ariane Prado MD 20[address] [facility] [address] [place] [address] PCP - General INTERNAL MEDICINE 11/30/22 Bereket Cruz MD [address] [place] [address] Vascular/Sales Operations Associate SURGERY 05/29/20 documented as of this encounter
--- OUTSIDE RECORDS SUMMARY | 2025-02-20 18:21 | XMS_ITS | Clinical Summary ---
Author Organization [facility] Address [address] [place] [address] Care Team Providers Care Sheeter Waxer Operator Name Role Phone Bereket Cruz MD Unavailable Ariane Prado MD Primary Care Provider [phone] Allergies Active Allergy Reactions Criticality Noted Date Comments [place] Extract Rash Medium 06/04/2020 Oyster Extract Nausea and Vomiting 05/22/2020 Can eat cooked oysters, cannot have raw Penicillins Rash,Dizziness Medium 06/04/2020 Medications hydrocodone-orly taminophen 7.5-325 MG tablet Take 1 tablet by mouth every 8 (eight) hours as needed. Active multi vitamin/mineral s tablet Take 1 tablet by mouth daily. Active STOOL SOFTENER 100 MG capsule Take 100 mg by mouth daily. 1 Active polyethylene glycol 17 GM/SCOOP powder MIX 1 CAPFUL IN LIQUID AND DRINK EVERY OTHER DAY 1 Active carvedilol (COREG) 6.25 MG tablet Take 6.25 mg by mouth 2 (two) times daily. 2 Active glucosamine-cho ndroitin 500-400 MG Cap Take 1 capsule by mouth daily. Active melatonin 5 MG tablet Take 5 mg by mouth nightly. Active ibuprofen (MOTRIN) 200 MG tablet Take 200 mg by mouth every 6 (six) hours as needed for Pain. Active COMPRESSION STOCKINGS, DME, Assist pt with applying stockings in the morning and removing in the evenings. Low compression, knee highs. DX: and HTN 2 Package 1 2 Active triamcinolone (KENALOG) 0.1 % ointment As directed 2 Active isosorbide dinitrate (ISORDIL) 30 MG tablet Take 0.5 tablets by mouth daily. 3 Active ELIQUIS 2.5 MG tablet TAKE 1 TABLET(2.5 MG) BY MOUTH TWICE DAILY 60 tablet 3 3 Active apixaban (ELIQUIS) 2.5 MG tablet TAKE 1 TABLET(2.5 MG) BY MOUTH TWICE DAILY 60 tablet 3 4 Active atorvastatin (LIPITOR) 40 MG tablet Take 1 tablet (40 mg total) by mouth daily. PLEASE CALL OFFICE TO SCHEDULE APPOINTMENT 30 tablet 4 Active Active Problems Problem Noted Date Diagnosed Date Paroxysmal atrial fibrillation ([facility]) 01/19/2023 Chest pain 07/11/2022 Status post placement of implantable loop record er 04/06/2021 Overview (02/18/2022): MDT REVEAL LINQ IMPLANTED 05/31/20 FOR SYNCOPE Nonrheumatic aortic valve stenosis 07/02/2020 LBBB (left bundle branch block) 05/31/2020 Orthostatic hypotension 05/29/2020 Peripheral vascular disease 08/20/2019 Cervical cancer ([facility]) 11/30/1980 Overview (05/29/2020): radiation 1980 History of blood transfusion Osteoarthritis ASHD (arteriosclerotic heart disease) Hypertension Dementia Syncope and collapse Overview (02/18/2022): MDT REVEAL LINQ IMPLANTED 05/31/20 FOR SYNCOPE Thyroid nodule Hypercholesterolemia Immunizations Name Administration Dates Next Due Fluzone High Dose - >Age 65 (Prefilled Syringe) 11/08/2018 Family History Medical History Relation Comments Cancer Father Colon Cancer Father Relation Status Comments Father Social History Tobacco Use Types Packs/Day Years Used Date Smoking Tobacco: Former Cigarettes 0.3 15 1 987 - 2002 Cigars Smokeless Tobacco: Never Tobacco Cessation:Counseling Given: Not Answered Alcohol Use Standard Drinks/Week Comments Yes 0 (1 standard drink = 0.6 oz pur e alcohol) socially Comments Unknown Sex and Gender Information Value Date Recorded Sex Assigned at Female 05/29/2020 8:40 PM CDT Legal Sex Female 10:20 AM CDT Gender Identity Female 05/29/2020 8:40 PM CDT Sexual Orientation Straight 05/29/2020 8: 40 PM CDT Last Filed Vital Signs Vital Sign Reading Time Taken Comments Blood Pressure 136/82 01/19/2023 1:59 PM OPTOMECHANICAL TECHNICIAN Pulse 68 01/19/2023 1:59 PM OPTOMECHANICAL TECHNICIAN Temperature 36.6 C (97.9 F) 06/07/2020 11:02 AM CDT Respiratory Rate 20 06/07/2020 11:0 2 AM CDT Oxygen Saturation 98% 01/19/2023 1:59 PM OPTOMECHANICAL TECHNICIAN Inhaled Oxygen Concentration - - Weight 52.1 kg (114 lb 12.8 oz) 01/19/2023 1:59 PM OPTOMECHANICAL TECHNICIAN Height 161.2 cm (5' 3.45 ) 01/19/2023 1:59 PM CS T Body Mass Index 20.05 01/19/2023 1:59 PM OPTOMECHANICAL TECHNICIAN Plan of Treatment Health Maintenance Due Date Last Done Comments Pneumococcal Vaccine: 65+ Ye ars (1 of 2 - PCV) 1941 DTaP, Tdap and Td Vaccines ( 1 - Tdap) 1954 Zoster Vaccines (1 of 2) 1985 Annual Medicare Wellness Visit 2000 RSV Immunization or 60+ Years (1 - 1-dose 75+ series) 2010 ASCVD LDL 01/11/2022 01/11/2021 COVID-19 Vaccine (1 - 2023-2 5 season) 2024 Influenza Adult (#1) 2024 11/08/2018 Meningococcal B Vaccine Aged Out No l onger eligible based on patient's age to complete this topic Meningococcal Vaccine Aged Out No antonella aida eligible based on patient's age to complete this topic RSV Immunizations Under 20 Months Aged Out No longer eligible based on patient's age to complete this topic Medical Devices Implanted Type Area Director Writing Device Identifier Shelf Expiration Date Model / Serial / Lot Mdt Implantable Loop Recorder-05/31/20 20 Implanted:05/31 by Jhonny Varghese MD (Quantity not on file) Implantable Loop Recorder [employer] CARDIAC RHYTHM AND HEART FAILURE - DIV M [id number] / [id number] S / Explanted Type Area Director Writing Device Identifier Shelf Expiration Date Model / Serial / Lot Graft [place]-Deshawn Stretch Thin Rem. Rings 8mm X 40cm - [id number] Explanted:Qty: 1 on 06/04/2020 at [facility] N/A: [employer] [id number] / / Description:PROCEDURE ABORTE D Procedures Procedure Name Priority Date/Time Associated Diagnosis Comments LIPID PANEL Routine 01/11/2021 from Last 3 Months or Most Recently Relevant to Health Maintenance Results * LIPID PANEL (01/11/2021) CHOLESTEROL 207 HDL 106 TRIGLYCERIDES 98 LDL (CALCULATED) 84 01/11/2021 us Doc [facility] Final Result from Last 3 Months or Most Recently Relevant to Health Maintenance Insurance Advance Directives * DNR (Latest Code Status on File) Date Activated Date Inactivated Comments 05/31/2020 3:40 PM 06/07/2020 2:58 PM * DNR Date Activated Date Inactivated Comments 05/29/2020 8:03 PM 05/31/2020 3:40 PM * Full Code Date Activated Date Inactivated Comments 05/22/2020 9:15 AM 05/22/2020 7:49 PM * Full Code Date Activated Date Inactivated Comments 08/19/2019 3:15 PM 08/21/2019 2:55 PM Care Teams Sheeter Waxer Operator Relationship Specialty Start Date End Date Ariane Prado MD [address] [facility] [address] [place] [address] PCP - General INTERNAL MEDICINE 11/30/22 Bereket Cruz MD [address] [facility] [address] [place] [address] Vascular/Geotechnical Department Manager SURGERY 05/29/20
--- OUTSIDE RECORDS SUMMARY | 2025-02-20 18:21 | XMS_ITS | Encounter Summary ---
Author Organization [facility] Address [address] [place] [address] Care Team Providers Care Cloth Brushing And Sueding Supervisor Name Role Phone Bereket Cruz MD Unavailable Lalo Schwartz DO Primary Care Provider [phone] Bebeto Rueda MD Primary Care Provider [phone] Tavares Sylvester MD Primary Care Provider [phone] Ariane Prado MD Primary Care Provider [phone] Encounter Details Date Type Department Care Team (Late st Contact Info) Description 06/08/2020 Hospital Follow-up Call [facility] [place] [address] Lena Burnette, RN Social History Tobacco Use Types Packs/Day Years [...] have Coronavirus / COVID-19? No / Unsure 05/31/2020 3:55 PM CDT documented as of this encounter Functional Status [...] 8:47 PM CDT Leilani Stuart RN Active documented as of this encounter Mental Status * Because of a physical, mental, or emotional condition, do you have serious difficulty concentrating, remembering, or making decisions? Answer Entry Date Author Status No 05/29/2020 8:47 PM CDT Leilani Stuart RN Active documented in this encounter Plan of Treatment Not on file documented as of this encounter Visit Diagnoses Not on filedocumented in this encounter Care Teams Cloth Brushing And Sueding Supervisor Relationship Specialty Start Date End Date Lalo Schwartz DO [address] [address] PCP - General INTERNAL MEDICINE 12/31/20 08/05/22 Bebeto Rueda MD [address] [phone] PCP - General FAMILY PRACTICE 11/30/19 12/30/20 Tavares Sylvester MD [address] [place] [address] PCP - General INTERNAL MEDICINE 08/06/22 11/29/22 Ariane Prado MD [address] [id number] PCP - General INTERNAL MEDICINE 11/30/22 Bereket Cruz MD [address] [place] [address] Vascular/Loop Tacker SURGERY 05/29/20 documented as of this encounter
[2025-02-20 18:36] VITALS: BP 171/68; PULSE 76; RESP 29; O2SAT 100
[2025-02-20] MEDS: ONDANSETRON INJ 4 MG/2 ML VIAL IV PUSH (18:55)
--- OUTSIDE RECORDS SUMMARY | 2025-02-20 19:10 | XMS_ITS | Clinical Summary ---
Author Organization [facility] Address [address] [place] [address] Care Team Providers Care Director Regulatory Compliance Name Role Phone Bereket Cruz MD Unavailable Ariane Prado MD Primary Care Provider [phone] Allergies Active Allergy Reactions Criticality Noted Date Comments [place] Extract Rash Medium 06/04/2020 Oyster Extract Nausea [...] Noted Date Diagnosed Date Paroxysmal atrial fibrillation ([facility]) 01/19/2023 Chest pain 07/11/2022 Status post placement of implantable loop record er 04/06/2021 Overview (02/18/2022): MDT REVEAL LINQ IMPLANTED 05/31/20 FOR SYNCOPE Nonrheumatic aortic valve stenosis 07/02/2020 LBBB (left bundle branch block) 05/31/2020 Orthostatic hypotension 05/29/2020 Peripheral vascular disease 08/20/2019 Cervical cancer ([facility]) 11/30/1980 Overview (05/29/2020): radiation 1980 History of [...] Comments Blood Pressure 136/82 01/19/2023 1:59 PM HOT METAL MIXER OPERATOR Pulse 68 01/19/2023 1:59 PM HOT METAL MIXER OPERATOR Temperature 36.6 C (97.9 F) 06/07/2020 11:02 AM CDT Respiratory Rate 20 06/07/2020 11:0 2 AM CDT Oxygen Saturation 98% 01/19/2023 1:59 PM HOT METAL MIXER OPERATOR Inhaled Oxygen Concentration - - Weight 52.1 kg (114 lb 12.8 oz) 01/19/2023 1:59 PM HOT METAL MIXER OPERATOR Height 161.2 cm (5' 3.45 ) 01/19/2023 1:59 PM CS T Body Mass Index 20.05 01/19/2023 1:59 PM HOT METAL MIXER OPERATOR Plan of Treatment Health Maintenance Due Date [...] this topic Medical Devices Implanted Type Area Field Consultant Device Identifier Shelf Expiration Date Model / Serial / Lot Mdt Implantable Loop Recorder-05/31/20 20 Implanted:05/31 by Jhonny Varghese MD (Quantity not on file) Implantable Loop Recorder [employer] CARDIAC RHYTHM AND HEART FAILURE - DIV M [id number] / [id number] S / Explanted Type Area Field Consultant Device Identifier Shelf Expiration Date Model / Serial / Lot Graft [place]-Deshawn Stretch Thin Rem. Rings 8mm X 40cm - [id number] Explanted:Qty: 1 on 06/04/2020 at [facility] N/A: [employer] [id number] / / Description:PROCEDURE ABORTE D Procedures [...] 3:15 PM 08/21/2019 2:55 PM Care Teams Director Regulatory Compliance Relationship Specialty Start Date End Date Ariane Prado MD [address] [facility] [address] [place] [address] PCP - General INTERNAL MEDICINE 11/30/22 Bereket Cruz MD 475 [facility] [address] [place] [address] Vascular/Swine Extension Field Specialist SURGERY 05/29/20
--- OUTSIDE RECORDS SUMMARY | 2025-02-20 19:10 | XMS_ITS | Encounter Summary ---
Author Organization [facility] Address [address] [place] [address] Care Team Providers Care Benefits Manager Name Role Phone Bereket Crzu MD Unavailable Lalo Schwartz DO Primary Care Provider [phone] Bebeto Rueda MD Primary Care Provider [phone] Tavares Sylvester MD Primary Care Provider [phone] Ariane Prado MD Primary Care Provider [phone] Encounter Details Date Type Department Care Team (Late st Contact Info) Description 06/08/2020 Hospital Follow-up Call [facility] [place] [address] Lena Burnette, RN Social History [...] on filedocumented in this encounter Care Teams Benefits Manager Relationship Specialty Start Date End Date Lalo Schwartz DO [address] [address] PCP - General INTERNAL MEDICINE 12/31/20 08/05/22 Bebeto Rueda MD [address] [address] PCP - General FAMILY PRACTICE 11/30/19 12/30/20 Tavares Sylvester MD [address] [place] [address] PCP - General INTERNAL MEDICINE 08/06/22 11/29/22 Ariane Prado MD [address] [phone] PCP - General INTERNAL MEDICINE 11/30/22 Bereket Cruz MD [address] [place] [address] Vascular/Collaborative Physician SURGERY 05/29/20 documented as of this encounter
--- OUTSIDE RECORDS SUMMARY | 2025-02-20 19:10 | XMS_ITS | Encounter Summary ---
Author Organization [facility] Address [address] [place] [address] Care Team Providers Care Classification Case Manager Name Role Phone Bereket Cruz MD Unavailable Lalo Schwartz DO Primary Care Provider [phone] Tavares Sylvester MD Primary Care Provider [phone] Ariane Prado MD Primary Care Provider [phone] Encounter Details Date Type Department Care Team (Late st Contact Info) Description 01/14/2021 Abstract [facility] [address] Maria Isabel Castellanos MA Social History Tobacco [...] COVID-19? 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 documented as of this encounter Functional Status [...] Final Result * LIPID PANEL (01/11/2021) Pathologist [facility] CHOLESTEROL 207 HDL 106 TRIGLYCERIDES 98 LDL [...] on filedocumented in this encounter Care Teams Classification Case Manager Relationship Specialty Start Date End Date Lalo Schwartz DO 20[address] [facility] [address] [place] [address] PCP - General INTERNAL MEDICINE 12/31/20 08/05/22 Tavares Sylvester MD [address] [place] [address] PCP - General INTERNAL MEDICINE 08/06/22 11/29/22 Ariane Prado MD 2089 [facility] [address] [place] [address] PCP - General INTERNAL MEDICINE 11/30/22 Bereket Cruz MD [address] [place] [address] Vascular/Induction Heating Equipment Setter SURGERY 05/29/20 documented as of this encounter
--- OUTSIDE RECORDS SUMMARY | 2025-02-20 19:10 | XMS_ITS ---
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 Name Role Phone Michael Flores Unavailable Unavailable Ampadu, Tavares Unavailable Unavailable Ampadu, Anais Unavailable Unavailable Allergies and adverse reactions Code CodeSystem Substance Reaction Severity StartDate Concern Status 171593653 SNOMED CT Penicillins Mild 07/06/2021 activ e Care Team Name Role Address Phone Organization Dates Tavares Sylvester PCP [address], [place], [facility], [facility] (Office): : [facility] 07/07/2021 - 07/16/2021 Michaelkyaw Flores Attending Physician [facility] [place], [facility], [facility] (Office): [facility] 07/07/2021 - 07/16/2021 Anais Sylvester Attending Physician [address] [place] [address], [address] [place] [address] (Office): : [facility] 07/07/2021 - 07/16/2021 Immunizations Immunization Status Vaccine Details Vaccine Code CodeSystem Date Notes Influenza cancelled Influenza, high-dose, split virus, quadrivalent, injectable, preservative free 197 CVX created date: 07/09/2021 consent date: 07/09/2021 TB 2 Step Mantoux Skin Test completed tuberculin skin test; unspecified formulation lotNumber: [id number] expiry: 01/27/2022 Mfg: Tuberculin Given 0.1 ml [...] OTHER SPECIFIED HEARING LOSS, UNSPECIFIED EAR [address] active 2 ACUTE KIDNEY FAILURE, UNSPECIFIED [address] active 3 CARDIAC MURMUR, UNSPECIFIED 13051799 SNOMED CT active 4 DEHYDRATION 021 07/08/[address] completed 5 DIARRHEA, UNSPECIFIED 021 07/08/[address] completed 6 ESSENTIAL (PRIMARY) HYPERTENSION 68554359 SNOMED CT active 7 LEFT BUNDLE-BRANCH BLOCK, UNSPECIFIED [address] active 8 NONINFECTIVE GASTROENTERITIS AND COLITIS, UNSPECIFIED [address] active 9 PERIPHERAL VASCULAR DISEASE, UNSPECIFIED [address] active 10 COVID-[address] active 11 GASTRO-ESOPHAGEAL REFLUX DISEASE WITHOUT ESOPHAGITIS [address] active 12 HYPERLIPIDEMIA, UNSPECIFIED [address] active 13 NEED FOR ASSISTANCE WITH PERSONAL CARE [id number] active 14 PRIMARY OSTEOARTHRITIS, UNSPECIFIED SITE [address] active 15 UNSPECIFIED DEMENTIA, UNSPECIFIED SEVERITY, WITHOUT BEHAVIORAL DISTURBANCE, PSYCHOTIC DISTURBANCE, MOOD DISTURBANCE, AND ANXIETY [address] active 16 WEAKNESS [address] active Reason for Referral No Reasons for Referral Entered Social History Social History Observation Description Start Date End Date Code Code System Current Smoking Status Tobacco smoking consumption unknown 716886778 SNOMED CT Sex Assigned At Female 1935 61411-3 [facility] Vital Signs Code Code System Vitals Name Values and Units Timing Information 60196-5 [facility] Pain Level Value=0.0 07/20/2021 8302-2 [facility] Height Value=61.0 Units=Inches 07/15/2021 03055-7 [facility] Weight Value=99.8 Units=Lbs 06/30 9279-1 [facility] Respiratory Rate Value=18.0 Units=/m in 07/09/2021 8867-4 [facility] Heart rate Value=66.0 Units=/min 08/2021 94472-5 [facility] O2 % BldC Oximetry Value=95.0 Units= % 07/09/2021 8462-4 [facility] Blood Pressure-Diastolic Value=64 Un its=mmHg 07/09/2021 8480-6 [facility] Blood Pressure-Systolic Jvvit=289 Un its=mmHg 07/09/2021 8310-5 [facility] Body Temperature Value=97.6 Units= F 07/09/2021
[2025-02-20 19:32] LABS: Add Urine Microscopic? YES; Appearance Urine Clear (Clear); Bacteria Urine None Seen /hpf; Bilirubin Urine Negative (Negative); Blood Urine 1+ (Negative); Color Urine Yellow (Yellow); Glucose Urine UA Negative (Negative); Ketones Urine Negative (Negative); Leukocyte Esterase Ur 1+ LEU/UL (Negative); Need Manual Microscopic Reviewed; Nitrate Urine Negative (Negative); Protein Urine 2+ mg/dL (Negative); Squamous Epithelial Cell Urine None Seen /hpf (Few); Urobilinogen Urine 0.2 mg/dL (<2.0)
[2025-02-20 19:54] LABS: Magnesium 1.2 mg/dL (1.6-2.3)
[2025-02-20 20:11] LABS: Alanine Aminotransferase 20 U/L (6-35); Albumin Level 3.7 g/dL (3.5-5.1); Alkaline Phosphatase 69 U/L (38-126); Anion Gap 9 mmol/L (4-12); Aspartate Amino Transferase 31 U/L (14-36); Bilirubin,Total 0.4 mg/dL (0.2-1.3); Blood Urea Nitrogen 35 mg/dL (7-17); Calcium 8.6 mg/dL (8.4-10.2); Carbon Dioxide 25 mmol/L (22-30); Chloride 106 mmol/L (98-107); Estimated CRCL calculation 26 ml/min; Estimated Glomerular Filt Rate 49; Glucose 98 mg/dL (65-110); Lipase 27 U/L (23-300); Potassium 4.7 mmol/L (3.4-5.0); Sodium 140 mmol/L (137-145)
[2025-02-20 20:25] LABS: Troponin I 0.017 ng/mL (0.000-0.034)
[2025-02-20 20:56] VITALS: BP 166/49; PULSE 78; RESP 18; TEMP 36.7; O2SAT 97
[2025-02-20] MEDS: SODIUM CHLORIDE 0.9% IV 1,000 ML 999 ML IV CONT (21:36)
[2025-02-20] MEDS: metroNIDAZOLE 500 MG/ISO 100ML 500 MG/100 ML BAG 100 MG IVPB (21:36)
[2025-02-20] MEDS: MAGNESIUM SULF 1 GM/D5W 100 ML 1 GM/100 ML BAG IVPB (22:28)
[2025-02-20 23:00] VITALS: BP 137/41; PULSE 75; RESP 19; TEMP 36.8; O2SAT 98
[2025-02-20] MEDS: SODIUM CHLORIDE 0.9% IV 1,000 ML 100 ML IV CONT (23:23)
[2025-02-20] MEDS: MAGNESIUM SULF 2 GM/WATER 50ML 2 GM/50 ML BAG IVPB (23:24)
[2025-02-21] VITALS (9 sets, daily range): BP systolic 148–183; BP diastolic 57–88; PULSE 65–91; RESP 16–20; TEMP 36.2–37.1; O2SAT 94–99; BMI 18.1
--- NOTE | 2025-02-21 | ECHO_ITS ---
Patient Info Name: Renee Bautista Age: 89 years : 1935 Gender: Female Ht: 64 in Wt: 105 lbs BSA: 1.46 m2 Technical Quality: Good Exam Date: 02/21/2025 3:07 PM Exam Location: Echo Lab Patient Status: Outpatient Admit Date: 02/20/2025 Staff Ordering Physician: Sunny Gaffney MD Cutter First: Natalie Ya RDCS Attending Provider: Jenn Hernández DO Exam Type: CA echo doppler color flow Study Info Indications - Aortic stenosis Complete two-dimensional, color flow and Doppler transthoracic echocardiogram is performed. Summary 1. Complete two-dimensional, color flow and Doppler transthoracic echocardiogram is performed. 2. Left ventricular chamber dimension is normal. 3. Left ventricular systolic function is normal, estimated at 60-65%. 4. There is moderate concentric increased left ventricular wall thickness. 5. The left ventricular diastolic function is grade I diastolic dysfunction. 6. E/e' 34 is significantly elevated. 7. Left atrial chamber dimension is moderately enlarged. 8. The aortic valve is not well visualized. Cannot determine number of aortic valve leaflets. 9. There is moderate aortic valve stenosis based on a peak velocity of 381 cm/s, mean gradient of 33 mmHg, and aortic valve area of 1.0 cm2. 10. There is severe aortic valve sclerosis. 11. There is trace aortic valve regurgitation. 12. The mitral valve has moderately calcified annulus. 13. There is mild tricuspid valve regurgitation. 14. No pulmonary hypertension, estimated pulmonary arterial systolic pressure is 34 mmHg. Left Ventricle E/e' 34 is significantly elevated. Left ventricular chamber dimension is normal. Left ventricular systolic function is normal, estimated at 60-65%. There is moderate concentric increased left ventricular wall thickness. The left ventricular diastolic function is grade I diastolic dysfunction. Right Ventricle Right ventricular systolic function is normal and with normal TAPSE 2.4 cm. Right ventricular chamber dimension is normal. Left Atria Left atrial chamber dimension is moderately enlarged. Right Atria Right atrial chamber dimension is normal. Aortic Valve The aortic valve is not well visualized. Cannot determine number of aortic valve leaflets. There is moderate aortic valve stenosis based on a peak velocity of 381 cm/s, mean gradient of 33 mmHg, and aortic valve area of 1.0 cm2. There is severe aortic valve sclerosis. There is trace aortic valve regurgitation. Pulmonic Valve There is no pulmonic regurgitation. Mitral Valve The mitral valve has moderately calcified annulus. There is no mitral valve stenosis. There is no mitral valve regurgitation. Tricuspid Valve There is mild tricuspid valve regurgitation. No pulmonary hypertension, estimated pulmonary arterial systolic pressure is 34 mmHg. Pericardium/Pleural There is no pericardial effusion. Inferior Vena Cava Normal inferior vena cava with >50% collapse upon inspiration consistent with normal right atrial pressure, 5 mmHg. Aorta The aortic root size at the sinus of Valsalva is normal. Left Ventricular Outflow Tract Name Value Normal LVOT 2D LVOT Diameter 2.0 cm LVOT Doppler LVOT Peak Gradient 6 mmHg LVOT Mean Gradient 3 mmHg LVOT VTI 28 cm LVOT VTI/AV VTI Ratio 0.3 LVOT Stroke Volume 88 ml LVOT CO 16.3 l/min LVOT CI 11.2 l/min/m2 Pulmonic Valve Name Value Normal PV Doppler PV Peak Gradient 6 mmHg Mitral Valve Name Value Normal MV Doppler MV Peak Gradient 10 mmHg MV Mean Gradient 5 mmHg MV Decel [place] 256 cm/s2 MV PHT 121 ms MV Area (PHT) 1.8 cm2 4.0-5.0 MV Area (Cont Eq VTI) 2.0 cm2 MV Diastolic Function MV E Peak Velocity 107 cm/s MV A Peak Velocity 142 cm/s MV E/A 0.8 MV Decel Time 417 ms MV Annular TDI MV E/e' (Septal) 38.5 <=8.0 MV E/e' (Lateral) 31.3 <=8.0 MV E/e' (Average) 34.9 Tricuspid Valve Name Value Normal TV Regurgitation Doppler TR Peak Velocity 270 cm/s TR Peak Gradient 29 mmHg Estimated PAP/RSVP RA Pressure 5 mmHg <=5 PA Systolic Pressure 34 mmHg <36 RV Systolic Pressure 34 mmHg <36 Aorta Name Value Normal Ascending Aorta Ao Root Diameter (MM) 3.4 cm Ao Root Diam Index (MM) 2.3 cm/m2 Aortic Valve Name Value Normal AV Doppler AV Peak Velocity 381 cm/s AV Peak Gradient 57 mmHg AV Mean Gradient 33 mmHg AV VTI 87 cm AV Area (Cont Eq VTI) 1.0 cm2 >=3.0 AV Area (Cont Eq Giorgio) 1.0 cm2 AV Regurgitation 2D LVOT Area 3.1 cm2 Ventricles Name Value Normal LV Dimensions 2D/MM IVS Diastolic Thickness (2D) 1.6 cm 0.6-1.0 LVID Diastole (2D) 3.4 cm 3.8-5.2 LVIW Diastolic Thickness (2D) 1.2 cm 0.6-0.9 LVID Systole (2D) 2.6 cm 2.2-3.5 LVOT Diameter 2.0 cm LV Mass (2D Cubed) 163.19 g 67.00-162.00 LV Mass Index (2D Cubed) 112 g/m2 43-95 Relative Wall Thickness (2D) 0.68 LV Fractional Shortening/Ejection Fraction 2D/MM LV Fractional Shortening (2D) 25 % 27-45 LV EF (2D Teicholz) 51 % 54-74 LV Diastolic Volume (4C MOD) 63 ml LV EF (4C MOD) 63 % LV Diastolic Volume (2C MOD) 74 ml LV EF (2C MOD) 61 % LV Diastolic Volume (BP MOD) 70 ml 46-106 LV Diastolic Volume Index (BP MOD) 48 ml/m2 29-61 LV Systolic Volume (BP MOD) 26 ml 14-42 LV Systolic Volume Index (BP MOD) 18 ml/m2 8-24 LV EF (BP MOD) 63 % 54-74 LV Diastolic Length (4C) 7.0 cm LV Systolic Length (4C) 6.0 cm LV Stroke Volume (4C MOD) 40 ml Atria Name Value Normal LA Dimensions LA Dimension (MM) 4.4 cm 2.7-3.8 LA Volume (4C A-L) 71 ml LA Volume (BP A-L) 76 ml RA Dimensions RA Area (4C) 15.3 cm2 <=18.0 Report Signatures
--- NOTE | 2025-02-21 01:22 | ADMGEN ---
This patient, Renee Bautista, was admitted to 2 Medical Room 249-01. Patient/family oriented to hospital policies and general routines including ID bracelet, bed and alarms, visiting hours, pain management, procedures, bathroom and other care routines, personal items, smoking policy, room service/diet, and visiting hours. Information on how to activate the Rapid Response Team has been discussed. Patient/Family are encouraged to report perceived risks to care and to ask questions if they do not understand what they are told or what they should do.
--- NOTE | 2025-02-21 02:28 | PC.NURSE ---
I was unable to obtain the med list. The patient does not know them. She says her grand-daughter manages her meds but does not know her grand-daughter's phone number. She says we need to call her son (number on file) to get ahold of her grand-daughter but he turns off his phone at night so we would need to wait until morning to call.
[2025-02-21] MEDS: metroNIDAZOLE 500 MG/ISO 100ML 500 MG/100 ML BAG 100 MG IVPB ×3 (05:25→21:49)
--- NOTE | 2025-02-21 06:09 | PC.NURSE ---
I tried calling the son to get an updated med list. It went straight to voicemail.
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
[2025-02-21 11:06] LABS: Basophils Percent Auto 0.4 % (0.2-1.2); Eosinophils Absolute Auto 0.1 K/mm3 (0-0.3); Eosinophils Percent Auto 0.9 % (0-4.4); Hematocrit 36.3 % (37.0-47.0); Hemoglobin 11.6 g/dL (12.0-15.0); Immature Granulocyte Absolute 0.02 K/mm3 (0.00-0.031); Immature Granulocyte Percent A 0.4 % (0-0.5); Lymphocytes Absolute Auto 0.57 K/mm3 (0.9-3.2); Lymphocytes Percent Auto 10.8 % (18.3-44.2); Mean Corpuscular Hemoglobin 32.3 pg (26-34); Mean Corpuscular Volume 101.1 fl (80-100); Monocytes Absolute Auto 0.6 K/mm3 (0.1-0.6); Monocytes Percent Auto 12.1 % (2.6-8.5); Neutrophils Percent Auto 75.4 % (45.5-73.1); Platelet Count Result 104 k/mm3 (150-375); Red Blood Count 3.59 M/mm3 (4.2-5.4); Red Cell Distribution Width 13.2 % (11.5-14.5); White Blood Count 5.3 K/mm3 (4.5-10.0)
[2025-02-21 11:17] LABS: Alanine Aminotransferase 20 U/L (6-35); Albumin Level 3.3 g/dL (3.5-5.1); Alkaline Phosphatase 60 U/L (38-126); Anion Gap 7 mmol/L (4-12); Aspartate Amino Transferase 32 U/L (14-36); Bilirubin,Total 0.2 mg/dL (0.2-1.3); Blood Urea Nitrogen 26 mg/dL (7-17); Calcium 8.3 mg/dL (8.4-10.2); Carbon Dioxide 25 mmol/L (22-30); Chloride 109 mmol/L (98-107); Cholesterol 129 mg/dL (0-200); Estimated CRCL calculation 23 ml/min; Estimated Glomerular Filt Rate 45; Glucose 98 mg/dL (65-110); HDL Direct 67 mg/dL; Magnesium 1.9 mg/dL (1.6-2.3); Potassium 4.2 mmol/L (3.4-5.0); Sodium 141 mmol/L (137-145); Triglycerides 60 mg/dL (<150)
[2025-02-21 11:28] LABS: LDL Cholesterol Direct 33 mg/dL
[2025-02-21] MEDS: ATORVASTATIN 40 MG TABLET PO (11:32)
[2025-02-21] MEDS: carvediloL 6.25 MG TABLET BY MOUTH ×2 (11:32→20:22)
[2025-02-21] MEDS: PANTOPRAZOLE 40 MG TABLET PO (11:33)
[2025-02-21] MEDS: ISOSORBIDE DINITRATE 10 MG TABLET PO (11:33)
[2025-02-21] MEDS: ISOSORBIDE DINITRATE 5 MG TABLET PO (11:33)
[2025-02-21] MEDS: SODIUM CHLORIDE 0.9% IV 1,000 ML 100 ML IV CONT ×2 (11:34→21:48)
[2025-02-21] MEDS: FERROUS SULFATE 325 MG TABLET DR BY MOUTH (11:34)
[2025-02-21 14:33] LABS: Hemoglobin A1C 4.6 % (<5.7)
[2025-02-21] MEDS: HYDROcodone/acetaminophen (*CRX) 5-325 MG TABLET 1 TAB PO (20:29)
[2025-02-22 03:10] LABS: Toxigenic C. Diff NEGATIVE (NEGATIVE)
[2025-02-22 05:19] VITALS: BP 180/60; PULSE 69; RESP 18; TEMP 37; O2SAT 96
[2025-02-22 05:26] LABS: Basophils Percent Auto 0.2 % (0.2-1.2); Eosinophils Absolute Auto 0.2 K/mm3 (0-0.3); Eosinophils Percent Auto 3.2 % (0-4.4); Hematocrit 32.5 % (37.0-47.0); Hemoglobin 10.2 g/dL (12.0-15.0); Immature Granulocyte Absolute 0.02 K/mm3 (0.00-0.031); Immature Granulocyte Percent A 0.4 % (0-0.5); Immature Platelet Fraction Pct 2.1 % (0.9-11.2); Lymphocytes Absolute Auto 0.62 K/mm3 (0.9-3.2); Lymphocytes Percent Auto 12.4 % (18.3-44.2); Mean Corpuscular HGB Conc 31.4 g/dl (32-36); Mean Corpuscular Hemoglobin 32.1 pg (26-34); Mean Corpuscular Volume 102.2 fl (80-100); Mean Platelet Volume 10.5 fl (7.4-10.4); Monocytes Absolute Auto 0.6 K/mm3 (0.1-0.6); Monocytes Percent Auto 11.8 % (2.6-8.5); Neutrophils Absolute Auto 3.6 K/mm3 (1.3-6.7); Platelet Count Result 101 k/mm3 (150-375); Red Blood Count 3.18 M/mm3 (4.2-5.4); Red Cell Distribution Width 13.1 % (11.5-14.5)
[2025-02-22 05:29] LABS: Alanine Aminotransferase 17 U/L (6-35); Albumin Level 2.7 g/dL (3.5-5.1); Alkaline Phosphatase 55 U/L (38-126); Anion Gap 6 mmol/L (4-12); Aspartate Amino Transferase 31 U/L (14-36); Bilirubin,Total < 0.1 mg/dL (0.2-1.3); Blood Urea Nitrogen 26 mg/dL (7-17); Calcium 8.2 mg/dL (8.4-10.2); Carbon Dioxide 22 mmol/L (22-30); Chloride 113 mmol/L (98-107); Estimated CRCL calculation 25 ml/min; Estimated Glomerular Filt Rate 50; Glucose 87 mg/dL (65-110); Magnesium 1.6 mg/dL (1.6-2.3); Potassium 3.7 mmol/L (3.4-5.0); Sodium 141 mmol/L (137-145)
[2025-02-22] MEDS: metroNIDAZOLE 500 MG/ISO 100ML 500 MG/100 ML BAG 100 MG IVPB ×2 (05:42→14:19)
[2025-02-22] MEDS: ISOSORBIDE DINITRATE 5 MG TABLET PO (08:23)
[2025-02-22] MEDS: LOPERAMIDE HCL 2 MG CAPSULE PO (08:23)
[2025-02-22] MEDS: HYDROcodone/acetaminophen (*CRX) 5-325 MG TABLET 1 TAB PO ×2 (08:23→20:50)
[2025-02-22 08:24] VITALS: PULSE 69
[2025-02-22] MEDS: PANTOPRAZOLE 40 MG TABLET PO (08:24)
[2025-02-22] MEDS: ATORVASTATIN 40 MG TABLET PO (08:24)
[2025-02-22] MEDS: carvediloL 6.25 MG TABLET BY MOUTH ×2 (08:24→20:51)
[2025-02-22] MEDS: ISOSORBIDE DINITRATE 10 MG TABLET PO (08:25)
[2025-02-22] MEDS: FERROUS SULFATE 325 MG TABLET DR BY MOUTH (08:25)
[2025-02-22] MEDS: MULTIVITAMINS /C LUTEIN (CENTRUM SILVER) TABLET *BKC 1 TAB PO (08:25)
[2025-02-22] MEDS: ENOXAPARIN 30 MG/0.3 ML SYRINGE SUB-Q (08:26)
[2025-02-22 09:03] LABS: Folic Acid > 20.0 ng/mL (2.76->20)
[2025-02-22] MEDS: SODIUM CHLORIDE 0.9% IV 1,000 ML 100 ML IV CONT (11:14)
[2025-02-22 14:00] VITALS: BP 163/70; PULSE 64; RESP 18; TEMP 36.6; O2SAT 97
--- NOTE | 2025-02-22 17:40 | PM.IMPN ---
Progress Note: A&P Assessment and Plan (1) Esophageal reflux: Qualifiers: Esophagitis presence: esophagitis presence not specified Qualified Code(s): K21.9 - Gastro-esophageal reflux disease without esophagitis Code(s): K21.9 - Gastro-esophageal reflux disease without esophagitis Status: Acute (2) Colitis: Code(s): K52.9 - Noninfective gastroenteritis and colitis, unspecified Status: Acute (3) Aortic stenosis: Code(s): I35.0 - Nonrheumatic aortic (valve) stenosis Status: Acute (4) Essential (primary) hypertension: Code(s): I10 - Essential (primary) hypertension Status: Acute (5) PAD (peripheral artery disease): Code(s): I73.9 - Peripheral vascular disease, unspecified Status: Acute (6) Acute UTI: Code(s): N39.0 - Urinary tract infection, site not specified Status: Acute (7) Polyarthritis of multiple sites: Code(s): M13.0 - Polyarthritis, unspecified Status: Acute Plan Colitis - CT abdomen pelvis with IV contrast showed colonic wall edema from the hepatic flexure to the rectum likely representing infectious, inflammatory or ischemic colitis. Colitis could be infections but WBC normal and more concerning for ischemic given her hx of PAD. GI consult. Stool studies ordered. Continue abx for now. 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 Continue Lipitor. Add ASA. Moderate esophagitis/gastritis - noted by CT. Continue PPI. HTN - BP elevated. Takes Isordil daily (should be TID). Will adjust meds. Aortic stenosis - noted moderate aortic stenosis and echo December 2021. No other valvular abnormality. Follows with Cardiology. Repeat echo shows moderate . pAFib - not on Eliquis due to anemia. EKG showing normal sinus. Continue Coreg. Macrocytic anemia - Hgb trended down to 10 today. B12 low end of normal at 319. Replace B12. Hx of Cholecystectomy - CT scan showing stable intra and extrahepatic bile duct dilatation with pneumobilia probably secondary to cholecystectomy and prior sphincterotomy. 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 Disp - PT/OT DVT prophylaxis Lovenox Code status full code Subjective Date/time seen: 02/22/25 17:40 Interval history: 89yo female with PVD here for abdominal pain, n/v and diarrhea. Assuming care. Chart reviewed. Patient eating better. She had good breakfast but did not feel hungry for lunch. No abdominal pain with breakfast. Diarrhea is better. No chest pain shortness of breath. Walking to the bathroom. Feels weak though. Lives with her son. Exam Narrative: AF 97.9 163/70 64 18 97% ra Gen - NARD lying flat in bed Chest -mild bibasilar crackles. CV - RRR S1/S2 with a 3 in 6 systolic murmur loudest in sternal border. Abd - Soft, NT/ND, Positive BS Ext -mild left lower extremity edema but negative Homans sign. Psych - Nml mood and affect Skin - Warm and dry. healed sacral wound Objective Data Vital Signs Vital Signs: Vital Signs - 24 hr 02/21/25 20:10 02/21/25 20:22 02/21/25 21:51 Temperature 98.8 F Pulse Rate 66 66 Respiratory Rate 16 Blood Pressure 160/60 H Pulse Oximetry 96 Oxygen Delivery Room Air 02/22/25 05:19 02/22/25 08:00 02/22/25 08:24 Temperature 98.6 F Pulse Rate 69 69 Respiratory Rate 18 Blood Pressure 180/60 H Pulse Oximetry 96 Oxygen Delivery Room Air 02/22/25 14:00 02/22/25 14:20 Temperature 97.9 F Pulse Rate 64 Respiratory Rate 18 Blood Pressure 163/70 H Pulse Oximetry 97 Oxygen Delivery Room Air Intake/Output Intake/Output: Intake & Output 02/19/25 02/20/25 02/21/25 02/22/25 23:59 23:59 23:59 23:59 Intake Total 1250 2950 1490 Output Total 450 Balance 1250 2500 1490 Meds/Results Medications: Active Medications Generic Name Dose Route Start Last Admin Trade Name Freq PRN Reason Stop Dose Admin Hydrocodone Bitart/Acetaminophen 1 tab 02/21/25 10:46 02/22/25 08:23 Hydrocodone/Acetaminophen (*Crx) 5-325 Mg Tablet PO 1 tab Q8H PRN Administration Pain Rated 4-6 Atorvastatin Calcium 40 mg 02/21/25 11:05 02/22/25 08:24 Atorvastatin 40 Mg Tablet PO 40 mg DAILY DAHIANA Administration Carvedilol 6.25 mg 02/21/25 11:05 02/22/25 08:24 Carvedilol 6.25 Mg Tablet BY MOUTH 6.25 mg Q12HR DAHIANA Administration Enoxaparin Sodium 30 mg 02/22/25 09:00 02/22/25 08:26 Enoxaparin 30 Mg/0.3 Ml Syringe SUB-Q 30 mg DAILY DAHIANA Administration Ferrous Sulfate 325 mg 02/21/25 11:05 02/22/25 08:25 Ferrous Sulfate [address] BY MOUTH 325 mg DAILY DAHIANA Administration Hydromorphone HCl 0.5 mg 02/20/25 22:43 Hydromorphone Hcl Inj (*Crx) 1 Mg/Ml Syr IV PUSH Q4H PRN Pain Rated 7-10 Sodium Chloride 1,000 mls @ 100 mls/hr 02/20/25 22:45 02/22/25 11:14 Normal Saline Iv IV CONT 100 mls/hr .Q10H DAHIANA Administration Ceftriaxone Sodium 1 gm in 50 mls @ 100 mls/hr 02/21/25 20:00 02/21/25 20:53 Rocephin 1 Gm/Ns 50 Ml IVPB Infused Q24H DAHIANA Infusion Metronidazole 500 mg in 100 mls @ 100 mls/hr 02/21/25 06:00 02/22/25 14:19 Flagyl 500 Mg/Iso Soln 100 Ml IVPB 100 mls/hr Q8HR DAHIANA Administration Isosorbide Dinitrate 10 mg 02/21/25 11:10 02/22/25 08:25 Isosorbide Dinitrate 10 Mg Tablet PO 10 mg DAILY DAHIANA Administration Isosorbide Dinitrate 5 mg 02/21/25 11:15 02/22/25 08:23 Isosorbide Dinitrate 5 Mg Tablet PO 5 mg DAILY DAHIANA Administration Loperamide HCl 2 mg 02/22/25 05:56 02/22/25 08:23 Loperamide Hcl 2 Mg Capsule PO 2 mg PRN PRN Administration Diarrhea Multivitamins/Minerals 1 tab 02/22/25 09:00 02/22/25 08:25 Multivitamins /C Lutein (Centrum Silver) Tablet *Bkc PO 1 tab DAILY DAHIANA Administration Ondansetron HCl 4 mg 02/20/25 22:43 Ondansetron Inj 4 Mg/2 Ml Vial IV PUSH Q4H PRN Nausea Pantoprazole Sodium 40 mg 02/21/25 11:10 02/22/25 08:24 Pantoprazole 40 Mg Tablet PO 40 mg QAM DAHIANA Administration Perflutren Lipid Microsphere 0 ml 02/21/25 10:53 Perflutren Lipid Microspheres 1.5 Ml Vial Diluted To 10 Ml Total Volume IV PUSH 02/24/25 10:53 ONCE PRN adequate visualization Protocol Polyethylene Glycol 17 gm 02/21/25 10:46 Polyethylene Glycol 3350 17 Gm Powd.Pack PO DAILY PRN constipation Radiology Results: ITS Impressions Chest X-Ray 02/20/25 17:28 IMPRESSION: No acute cardiopulmonary pathology Abdomen/Pelvis CT 02/20/25 21:04 IMPRESSION: Trace left pleural effusion. Moderate esophagitis/gastritis. Stable intra and extrahepatic bile duct dilation, with pneumobilia, probably secondary to cholecystectomy and prior sphincterotomy. 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 Colonic wall edema from the hepatic flexure to the rectum, likely representing infectious, inflammatory, or ischemic colitis. Body wall edema. Small volume pelvic fluid. Occlusion of the left common iliac, internal iliac, and external iliac arteries, with reconstitution at the right common femoral artery, the extent of occlusion as progressed since the prior study. Occlusion of the right external iliac artery with reconstitution at the right common femoral artery, which is a new finding. Indurated soft tissues over the sacrum, correlate clinically for sacral decubitus ulcer. Labs Labs: Laboratory Results - last 24 hr 02/22/25 02/22/25 02/22/25 01:37 04:40 04:42 WBC 5.0 RBC 3.18 L Hgb 10.2 L Hct 32.5 L MCV 102.2 H MCH 32.1 MCHC 31.4 L RDW 13.1 Plt Count 101 L MPV 10.5 H Immature Gran % (Auto) 0.4 Neut % (Auto) 72.0 Lymph % (Auto) 12.4 L [place] % (Auto) 11.8 H Eos % (Auto) 3.2 Baso % (Auto) 0.2 Lymph # (Auto) 0.62 L [place] # (Auto) 0.6 Eos # (Auto) 0.2 Baso # (Auto) 0.0 Abs Immat Gran (auto) 0.02 Absolute Neuts (auto) 3.6 Absolute Nucleated RBC 0.000 Nucleated RBC % 0.0 % Immature Plt Fraction 2.1 Sodium 141 Potassium 3.7 Chloride 113 H Carbon Dioxide 22 Anion Gap 6 BUN 26 H Creatinine 1.04 H Estim Creat Clear Calc 25 Estimated GFR 50 L Glucose 87 Calcium 8.2 L Magnesium 1.6 Total Bilirubin < 0.1 L AST 31 ALT 17 Alkaline Phosphatase 55 Total Protein 5.0 L Albumin 2.7 L Vitamin B12 319.0 Folate > 20.0 H C. difficile (PCR) Negative
[2025-02-22] MEDS: CYANOCOBALAMIN INJ 1,000 MCG/ML VIAL 1000 MCG IM (18:32)
[2025-02-22 20:43] VITALS: BP 174/60; PULSE 69; RESP 17; TEMP 36.7; O2SAT 97
[2025-02-22] MEDS: metroNIDAZOLE 500 MG TABLET PO (20:50)
[2025-02-22 20:51] VITALS: PULSE 69
[2025-02-22 22:14] VITALS: BP 124/60
[2025-02-23 05:07] LABS: Basophils Percent Auto 0.2 % (0.2-1.2); Eosinophils Absolute Auto 0.2 K/mm3 (0-0.3); Eosinophils Percent Auto 3.6 % (0-4.4); Hemoglobin 10.6 g/dL (12.0-15.0); Immature Granulocyte Absolute 0.01 K/mm3 (0.00-0.031); Immature Granulocyte Percent A 0.2 % (0-0.5); Immature Platelet Fraction Pct 2.4 % (0.9-11.2); Lymphocytes Absolute Auto 0.99 K/mm3 (0.9-3.2); Lymphocytes Percent Auto 24.1 % (18.3-44.2); Mean Corpuscular HGB Conc 32.1 g/dl (32-36); Mean Corpuscular Hemoglobin 32.1 pg (26-34); Mean Platelet Volume 10.7 fl (7.4-10.4); Monocytes Absolute Auto 0.6 K/mm3 (0.1-0.6); Monocytes Percent Auto 13.9 % (2.6-8.5); Neutrophils Absolute Auto 2.4 K/mm3 (1.3-6.7); Platelet Count Result 95 k/mm3 (150-375); White Blood Count 4.1 K/mm3 (4.5-10.0)
[2025-02-23] MEDS: metroNIDAZOLE 500 MG TABLET PO ×3 (05:10→21:04)
[2025-02-23] MEDS: HYDROcodone/acetaminophen (*CRX) 5-325 MG TABLET 1 TAB PO ×3 (05:10→21:03)
[2025-02-23 05:13] VITALS: BP 160/90; PULSE 64; RESP 17; TEMP 36.8; O2SAT 97
[2025-02-23 05:14] LABS: Albumin Level 2.7 g/dL (3.5-5.1); Anion Gap 6 mmol/L (4-12); Blood Urea Nitrogen 23 mg/dL (7-17); Calcium 8.3 mg/dL (8.4-10.2); Carbon Dioxide 22 mmol/L (22-30); Chloride 112 mmol/L (98-107); Estimated CRCL calculation 25 ml/min; Estimated Glomerular Filt Rate 50; Glucose 82 mg/dL (65-110); Magnesium 1.2 mg/dL (1.6-2.3); Phosphorus 3.1 mg/dL (2.5-4.5); Sodium 140 mmol/L (137-145)
[2025-02-23 08:50] VITALS: PULSE 64
[2025-02-23] MEDS: ASPIRIN 81 MG CHEWABLE TABLET PO (08:50)
[2025-02-23] MEDS: ISOSORBIDE DINITRATE 5 MG TABLET PO ×3 (08:50→17:21)
[2025-02-23] MEDS: FERROUS SULFATE 325 MG TABLET DR BY MOUTH (08:50)
[2025-02-23] MEDS: PANTOPRAZOLE 40 MG TABLET PO (08:50)
[2025-02-23] MEDS: carvediloL 6.25 MG TABLET BY MOUTH ×2 (08:50→21:03)
[2025-02-23] MEDS: CYANOCOBALAMIN 1,000 MCG TABLET 1000 MCG PO (08:50)
[2025-02-23] MEDS: MULTIVITAMINS /C LUTEIN (CENTRUM SILVER) TABLET *BKC 1 TAB PO (08:51)
[2025-02-23] MEDS: ENOXAPARIN 30 MG/0.3 ML SYRINGE SUB-Q (08:51)
[2025-02-23] MEDS: ATORVASTATIN 40 MG TABLET PO (08:51)
[2025-02-23] MEDS: MAGNESIUM SULF 2 GM/WATER 50ML 2 GM/50 ML BAG IVPB (08:51)
[2025-02-23 14:00] VITALS: BP 170/63; PULSE 64; RESP 18; TEMP 36.6; O2SAT 96
--- NOTE | 2025-02-23 15:28 | PM.IMPN ---
Progress Note: A&P Assessment and Plan (1) Colitis: Code(s): K52.9 - Noninfective gastroenteritis and colitis, unspecified Status: Acute Assessment and Plan: Patient with abd pain. CT abdomen pelvis with IV contrast showed colonic wall edema from the hepatic flexure to the rectum likely representing infectious, inflammatory or ischemic colitis. Colitis could be infections but WBC normal and more concerning for ischemic given her hx of PAD. Stool studies negative thus far. No symptoms of intestinal angina. GI consulted. Continue abx for now. Change to oral route (2) PAD (peripheral artery disease): Code(s): I73.9 - Peripheral vascular disease, unspecified Status: Acute Assessment and Plan: CT scan also shows occlusion of the left common iliac, internal iliac and external iliac arteries with reconstitution at the right common femoral artery that has progressed since the prior study. 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 She follows with Dr Cruz and has had a stent placed that subsequently became occluded. ASA added. Continue Lipitor. (3) Esophageal reflux: Qualifiers: Esophagitis presence: esophagitis presence not specified Qualified Code(s): K21.9 - Gastro-esophageal reflux disease without esophagitis Code(s): K21.9 - Gastro-esophageal reflux disease without esophagitis Status: Acute Assessment and Plan: Moderate esophagitis/gastritis noted by CT. Continue PPI. (4) Aortic stenosis: Code(s): I35.0 - Nonrheumatic aortic (valve) stenosis Status: Acute Assessment and Plan: Moderate aortic stenosis noted by echo December 2021. No other valvular abnormality. Follows with Cardiology. Repeat echo here again shows moderate . (5) Essential (primary) hypertension: Code(s): I10 - Essential (primary) hypertension Status: Acute Assessment and Plan: BP elevated. Takes Isordil daily (should be TID) and Coreg. Isordil adjusted to TID dosing. She did drop to 124/60 overnight. Continue Coreg, Isordil. Follow (6) Acute UTI: Code(s): N39.0 - Urinary tract infection, site not specified Status: Acute Assessment and Plan: UTI ruled out (7) Anemia: Code(s): D64.9 - Anemia, unspecified Status: Acute Assessment and Plan: Macrocytic anemia. Hgb trended down to 10. B12 low end of normal at 319. Plt count low as well at around 100K. Replace B12. Plan pAFib - Presumably patient with pAFib but not well documented. Not on Eliquis due to anemia. EKG showing normal sinus. Continue Coreg. Hx of Cholecystectomy - CT scan showing stable intra and extrahepatic bile duct dilatation with pneumobilia probably secondary to cholecystectomy and prior sphincterotomy. 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 Disp - PT/OT. Patient feels too weak for discharge. Plan for SNF placement. DVT prophylaxis - Lovenox Code status - full code Subjective Date/time seen: 02/23/25 15:28 Interval history: 89yo female with PVD here for abdominal pain, n/v and diarrhea. Still feels weak. She was able to walk twice today. Abdominal pain is better. No diarrhea. Eating okay. Exam Narrative: AF 98.3 160/90 64 17 97% ra Gen - NARD Chest -lungs clear anteriorly CV - RRR S1/S2 with a 3 in 6 systolic murmur loudest in sternal border. Abd - Soft, NT/ND, Positive BS Ext -no significant pedal edema Psych - Nml mood and affect Skin - Warm and dry. Objective Data Vital Signs Vital Signs: Vital Signs - 24 hr 02/22/25 20:12 02/22/25 20:43 02/22/25 20:51 Temperature 98.1 F Pulse Rate 69 69 Respiratory Rate 17 Blood Pressure 174/60 H Pulse Oximetry 97 Oxygen Delivery Room Air 02/22/25 22:14 02/23/25 05:13 02/23/25 08:00 Temperature 98.3 F Pulse Rate 64 Respiratory Rate 17 Blood Pressure 124/60 160/90 H Pulse Oximetry 97 Oxygen Delivery Room Air 02/23/25 08:50 Temperature Pulse Rate 64 Respiratory Rate Blood Pressure Pulse Oximetry Oxygen Delivery Intake/Output Intake/Output: Intake & Output 02/20/25 02/21/25 02/22/25 02/23/25 23:59 23:59 23:59 23:59 Intake Total 1250 2950 1780 340 Output Total 450 400 Balance 1250 2500 1780 -60 Meds/Results Medications: Active Medications Generic Name Dose Route Start Last Admin Trade Name Freq PRN Reason Stop Dose Admin Hydrocodone Bitart/Acetaminophen 1 tab 02/21/25 10:46 02/23/25 13:11 Hydrocodone/Acetaminophen (*Crx) 5-325 Mg Tablet PO 1 tab Q8H PRN Administration Pain Rated 4-6 Aspirin 81 mg 02/23/25 08:00 02/23/25 08:50 Aspirin 81 Mg Chewable Tablet PO 81 mg DAILY@0800 [facility] Administration Atorvastatin Calcium 40 mg 02/21/25 11:05 02/23/25 08:51 Atorvastatin 40 Mg Tablet PO 40 mg DAILY DAHIANA Administration Carvedilol 6.25 mg 02/21/25 11:05 02/23/25 08:50 Carvedilol 6.25 Mg Tablet BY MOUTH 6.25 mg Q12HR DAHIANA Administration Cyanocobalamin 1,000 mcg 02/23/25 09:00 02/23/25 08:50 Cyanocobalamin 1,000 Mcg Tablet PO 1,000 mcg QAM [facility] Administration Enoxaparin Sodium 30 mg 02/22/25 09:00 02/23/25 08:51 Enoxaparin 30 Mg/0.3 Ml Syringe SUB-Q 30 mg DAILY [facility] Administration Ferrous Sulfate 325 mg 02/21/25 11:05 02/23/25 08:50 Ferrous Sulfate [address] BY MOUTH 325 mg DAILY [facility] Administration Hydromorphone HCl 0.5 mg 02/20/25 22:43 Hydromorphone Hcl Inj (*Crx) 1 Mg/Ml Syr IV PUSH Q4H PRN Pain Rated 7-10 Ceftriaxone Sodium 1 gm in 50 mls @ 100 mls/hr 02/21/25 20:00 02/22/25 21:22 Rocephin 1 Gm/Ns 50 Ml IVPB Infused Q24H [facility] Infusion Isosorbide Dinitrate 5 mg 02/23/25 09:00 02/23/25 13:11 Isosorbide Dinitrate 5 Mg Tablet PO 5 mg TID [facility] Administration Loperamide HCl 2 mg 02/22/25 05:56 02/22/25 08:23 Loperamide Hcl 2 Mg Capsule PO 2 mg PRN PRN Administration Diarrhea Metronidazole 500 mg 02/22/25 22:00 02/23/25 13:11 Metronidazole 500 Mg Tablet PO 500 mg Q8HR [facility] Administration Multivitamins/Minerals 1 tab 02/22/25 09:00 02/23/25 08:51 Multivitamins /C Lutein (Centrum Silver) Tablet *Bkc PO 1 tab DAILY [facility] Administration Ondansetron HCl 4 mg 02/20/25 22:43 Ondansetron Inj 4 Mg/2 Ml Vial IV PUSH Q4H PRN Nausea Pantoprazole Sodium 40 mg 02/21/25 11:10 02/23/25 08:50 Pantoprazole 40 Mg Tablet PO 40 mg QAM DAHIANA Administration Perflutren Lipid Microsphere 0 ml 02/21/25 10:53 Perflutren Lipid Microspheres 1.5 Ml Vial Diluted To 10 Ml Total Volume IV PUSH 02/24/25 10:53 ONCE PRN adequate visualization Protocol Polyethylene Glycol 17 gm 02/21/25 10:46 Polyethylene Glycol 3350 17 Gm Powd.Pack PO DAILY PRN constipation Radiology Results: ITS Impressions Chest X-Ray 02/20/25 17:28 IMPRESSION: No acute cardiopulmonary pathology Abdomen/Pelvis CT 02/20/25 21:04 IMPRESSION: Trace left pleural effusion. Moderate esophagitis/gastritis. Stable intra and extrahepatic bile duct dilation, with pneumobilia, probably secondary to cholecystectomy and prior sphincterotomy. 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 Colonic wall edema from the hepatic flexure to the rectum, likely representing infectious, inflammatory, or ischemic colitis. Body wall edema. Small volume pelvic fluid. Occlusion of the left common iliac, internal iliac, and external iliac arteries, with reconstitution at the right common femoral artery, the extent of occlusion as progressed since the prior study. Occlusion of the right external iliac artery with reconstitution at the right common femoral artery, which is a new finding. Indurated soft tissues over the sacrum, correlate clinically for sacral decubitus ulcer. Labs Labs: Laboratory Results - last 24 hr 02/23/25 04:37 WBC 4.1 L RBC 3.30 L Hgb 10.6 L Hct 33.0 L MCV 100.0 MCH 32.1 MCHC 32.1 RDW 13.0 Plt Count 95 L MPV 10.7 H Immature Gran % (Auto) 0.2 Neut % (Auto) 58.0 Lymph % (Auto) 24.1 [place] % (Auto) 13.9 H Eos % (Auto) 3.6 Baso % (Auto) 0.2 Lymph # (Auto) 0.99 [place] # (Auto) 0.6 Eos # (Auto) 0.2 Baso # (Auto) 0.0 Abs Immat Gran (auto) 0.01 Absolute Neuts (auto) 2.4 Absolute Nucleated RBC 0.000 Nucleated RBC % 0.0 % Immature Plt Fraction 2.4 Sodium 140 Potassium 4.0 Chloride 112 H Carbon Dioxide 22 Anion Gap 6 BUN 23 H Creatinine 1.03 H Estim Creat Clear Calc 25 Estimated GFR 50 L Glucose 82 Calcium 8.3 L Phosphorus 3.1 Magnesium 1.2 L Albumin 2.7 L
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
[2025-02-23 20:45] VITALS: BP 181/64; PULSE 70; RESP 18; TEMP 37.1; O2SAT 97
[2025-02-23 21:02] VITALS: BP 160/90
[2025-02-23 21:03] VITALS: PULSE 70
[2025-02-24] VITALS (7 sets, daily range): BP systolic 120–160; BP diastolic 80–88; PULSE 63–71; RESP 16–17; TEMP 36.5–37.2; O2SAT 96–98
[2025-02-24 04:39] LABS: Basophils Percent Auto 0.3 % (0.2-1.2); Eosinophils Absolute Auto 0.1 K/mm3 (0-0.3); Eosinophils Percent Auto 3.4 % (0-4.4); Hematocrit 34.2 % (37.0-47.0); Hemoglobin 11.2 g/dL (12.0-15.0); Immature Granulocyte Absolute 0.01 K/mm3 (0.00-0.031); Immature Granulocyte Percent A 0.3 % (0-0.5); Lymphocytes Absolute Auto 1.14 K/mm3 (0.9-3.2); Lymphocytes Percent Auto 32.5 % (18.3-44.2); Mean Corpuscular HGB Conc 32.7 g/dl (32-36); Mean Corpuscular Hemoglobin 32.1 pg (26-34); Mean Platelet Volume 10.7 fl (7.4-10.4); Monocytes Absolute Auto 0.5 K/mm3 (0.1-0.6); Neutrophils Absolute Auto 1.7 K/mm3 (1.3-6.7); Neutrophils Percent Auto 49.5 % (45.5-73.1); Platelet Count Result 113 k/mm3 (150-375); Red Blood Count 3.49 M/mm3 (4.2-5.4); Red Cell Distribution Width 12.8 % (11.5-14.5); White Blood Count 3.5 K/mm3 (4.5-10.0)
[2025-02-24 04:57] LABS: Anion Gap 9 mmol/L (4-12); Blood Urea Nitrogen 25 mg/dL (7-17); Calcium 8.5 mg/dL (8.4-10.2); Carbon Dioxide 22 mmol/L (22-30); Chloride 108 mmol/L (98-107); Estimated CRCL calculation 26 ml/min; Estimated Glomerular Filt Rate 54; Glucose 81 mg/dL (65-110); Magnesium 1.3 mg/dL (1.6-2.3); Potassium 4.2 mmol/L (3.4-5.0); Sodium 139 mmol/L (137-145)
[2025-02-24] MEDS: metroNIDAZOLE 500 MG TABLET PO ×2 (05:17→13:02)
[2025-02-24] MEDS: HYDROcodone/acetaminophen (*CRX) 5-325 MG TABLET 1 TAB PO (05:17)
[2025-02-24] MEDS: FERROUS SULFATE 325 MG TABLET DR BY MOUTH (08:52)
[2025-02-24] MEDS: carvediloL 6.25 MG TABLET BY MOUTH (08:52)
[2025-02-24] MEDS: MULTIVITAMINS /C LUTEIN (CENTRUM SILVER) TABLET *BKC 1 TAB PO (08:52)
[2025-02-24] MEDS: PANTOPRAZOLE 40 MG TABLET PO (08:52)
[2025-02-24] MEDS: ATORVASTATIN 40 MG TABLET PO (08:52)
[2025-02-24] MEDS: ASPIRIN 81 MG CHEWABLE TABLET PO (08:52)
[2025-02-24] MEDS: ISOSORBIDE DINITRATE 5 MG TABLET PO ×2 (08:52→13:03)
[2025-02-24] MEDS: CYANOCOBALAMIN 1,000 MCG TABLET 1000 MCG PO (08:53)
[2025-02-24] MEDS: levoFLOXacin 750 MG TABLET PO (08:53)
[2025-02-24] MEDS: ENOXAPARIN 30 MG/0.3 ML SYRINGE SUB-Q (08:59)
[2025-02-24] MEDS: MAGNESIUM SULF 2 GM/WATER 50ML 2 GM/50 ML BAG IVPB (09:00)
[2025-02-24 12:02] LABS: Magnesium 1.8 mg/dL (1.6-2.3)
--- NOTE | 2025-02-24 12:10 | PM.IMPN ---
Progress Note: A&P Assessment and Plan (1) Colitis: Code(s): K52.9 - Noninfective gastroenteritis and colitis, unspecified Status: Acute Assessment and Plan: Patient with abd pain. CT abdomen pelvis with IV contrast showed colonic wall edema from the hepatic flexure to the rectum likely representing infectious, inflammatory or ischemic colitis. Colitis could be infections but WBC normal and more concerning for ischemic given her hx of PAD. Stool studies negative thus far. No symptoms of intestinal angina. GI consulted. Continue abx for now. Change to oral route (2) PAD (peripheral artery disease): Code(s): I73.9 - Peripheral vascular disease, unspecified Status: Acute Assessment and Plan: CT scan also shows occlusion of the left common iliac, internal iliac and external iliac arteries with reconstitution at the right common femoral artery that has progressed since the prior study. 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 She follows with Dr Cruz and has had a stent placed that subsequently became occluded. ASA added. Continue Lipitor. (3) Esophageal reflux: Qualifiers: Esophagitis presence: esophagitis presence not specified Qualified Code(s): K21.9 - Gastro-esophageal reflux disease without esophagitis Code(s): K21.9 - Gastro-esophageal reflux disease without esophagitis Status: Acute Assessment and Plan: Moderate esophagitis/gastritis noted by CT. Continue PPI. (4) Aortic stenosis: Code(s): I35.0 - Nonrheumatic aortic (valve) stenosis Status: Acute Assessment and Plan: Moderate aortic stenosis noted by echo December 2021. No other valvular abnormality. Follows with Cardiology. Repeat echo here again shows moderate . (5) Essential (primary) hypertension: Code(s): I10 - Essential (primary) hypertension Status: Acute Assessment and Plan: BP elevated. Takes Isordil daily (should be TID) and Coreg. Isordil adjusted to TID dosing. She did drop to 124/60 overnight. Continue Coreg, Isordil. Follow (6) Acute UTI: Code(s): N39.0 - Urinary tract infection, site not specified Status: Acute Assessment and Plan: UTI ruled out (7) Anemia: Code(s): D64.9 - Anemia, unspecified Status: Acute Assessment and Plan: Macrocytic anemia. Hgb trended down to 10. B12 low end of normal at 319. Plt count low as well at around 100K. Replace B12. Plan pAFib - Presumably patient with pAFib but not well documented. Not on Eliquis due to anemia. EKG showing normal sinus. Continue Coreg. Hx of Cholecystectomy - CT scan showing stable intra and extrahepatic bile duct dilatation with pneumobilia probably secondary to cholecystectomy and prior sphincterotomy. 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 Disp - PT/OT. Patient feels too weak for discharge. Plan for SNF placement. DVT prophylaxis - Lovenox Code status - full code Subjective Date/time seen: 02/24/25 12:10 Interval history: 89yo female with PVD here for abdominal pain, n/v and diarrhea. Some nausea today but was able to eat breakfast and tolerate. She complains of feeling tired. No BM today or yesterday. Complains of LLQ abd pain. Exam Narrative: AF 97.7 160/88 67 17 98% ra Gen - NARD Chest - CTA bilaterally CV - RRR S1/S2 +murmur Abd - Soft, NT/ND, Positive BS. No LLQ pain now Ext -no pedal edema Psych - Nml mood and affect Skin - Warm and dry. Objective Data Vital Signs Vital Signs: Vital Signs - 24 hr 02/23/25 14:00 02/23/25 20:45 02/23/25 20:52 Temperature 97.8 F 98.7 F Pulse Rate 64 70 Respiratory Rate 18 18 Blood Pressure 170/63 H 181/64 H Pulse Oximetry 96 97 Oxygen Delivery Room Air 02/23/25 21:02 02/23/25 21:03 02/24/25 05:19 Temperature 97.7 F Pulse Rate 70 63 Respiratory Rate 17 Blood Pressure 160/90 H 120/80 Pulse Oximetry 96 Oxygen Delivery 02/24/25 08:50 02/24/25 08:52 02/24/25 08:55 Temperature Pulse Rate 67 67 Respiratory Rate Blood Pressure 160/88 H Pulse Oximetry 98 98 Oxygen Delivery Room Air Intake/Output Intake/Output: Intake & Output 02/21/25 02/22/25 02/23/25 02/24/25 23:59 23:59 23:59 23:59 Intake Total 2950 1780 510 240 Output Total 450 800 500 Balance 2500 1780 -290 -260 Meds/Results Medications: Active Medications Generic Name Dose Route Start Last Admin Trade Name Freq PRN Reason Stop Dose Admin Acetaminophen 650 mg 02/24/25 07:08 Acetaminophen 325 Mg Tablet PO Q6H PRN Mild Pain (1-5) Or Fever Hydrocodone Bitart/Acetaminophen 1 tab 02/21/25 10:46 02/24/25 05:17 Hydrocodone/Acetaminophen (*Crx) 5-325 Mg Tablet PO 1 tab Q8H PRN Administration Pain Rated 6 or Greater Aspirin 81 mg 02/23/25 08:00 02/24/25 08:52 Aspirin 81 Mg Chewable Tablet PO 81 mg DAILY@0800 COUNTS [facility]CLUDE 234 BEDS AT [facility] Administration Atorvastatin Calcium 40 mg 02/21/25 11:05 02/24/25 08:52 Atorvastatin 40 Mg Tablet PO 40 mg DAILY DAHIANA Administration Carvedilol 6.25 mg 02/21/25 11:05 02/24/25 08:52 Carvedilol 6.25 Mg Tablet BY MOUTH 6.25 mg Q12HR DAHIANA Administration Cyanocobalamin 1,000 mcg 02/23/25 09:00 02/24/25 08:53 Cyanocobalamin 1,000 Mcg Tablet PO 1,000 mcg QAM COUNTS INCLUDE 234 BEDS AT [facility] Administration Enoxaparin Sodium 30 mg 02/22/25 09:00 02/24/25 08:59 Enoxaparin 30 Mg/0.3 Ml Syringe SUB-Q 30 mg DAILY COUNTS [facility]CLUDE 234 BEDS AT [facility] Administration Ferrous Sulfate 325 mg 02/21/25 11:05 02/24/25 08:52 Ferrous Sulfate [address] BY MOUTH 325 mg DAILY COUNTS [facility]CLUDE 234 BEDS AT [facility] Administration Isosorbide Dinitrate 5 mg 02/23/25 09:00 02/24/25 08:52 Isosorbide Dinitrate 5 Mg Tablet PO 5 mg TID DAHIANA Administration Levofloxacin 750 mg 02/24/25 07:10 02/24/25 08:53 Levofloxacin 750 Mg Tablet PO 02/28/25 07:11 750 mg Q48H DAHIANA Administration Loperamide HCl 2 mg 02/22/25 05:56 02/22/25 08:23 Loperamide Hcl 2 Mg Capsule PO 2 mg PRN PRN Administration Diarrhea Metronidazole 500 mg 02/22/25 22:00 02/24/25 05:17 Metronidazole 500 Mg Tablet PO 500 mg Q8HR DAHIANA Administration Multivitamins/Minerals 1 tab 02/22/25 09:00 02/24/25 08:52 Multivitamins /C Lutein (Centrum Silver) Tablet *Bkc PO 1 tab DAILY DAHIANA Administration Pantoprazole Sodium 40 mg 02/21/25 11:10 02/24/25 08:52 Pantoprazole 40 Mg Tablet PO 40 mg QAM DAHIANA Administration Polyethylene Glycol 17 gm 02/21/25 10:46 Polyethylene Glycol 3350 17 Gm Powd.Pack PO DAILY PRN constipation Radiology Results: ITS Impressions Chest X-Ray 02/20/25 17:28 IMPRESSION: No acute cardiopulmonary pathology Abdomen/Pelvis CT 02/20/25 21:04 IMPRESSION: Trace left pleural effusion. Moderate esophagitis/gastritis. Stable intra and extrahepatic bile duct dilation, with pneumobilia, probably secondary to cholecystectomy and prior sphincterotomy. 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 Colonic wall edema from the hepatic flexure to the rectum, likely representing infectious, inflammatory, or ischemic colitis. Body wall edema. Small volume pelvic fluid. Occlusion of the left common iliac, internal iliac, and external iliac arteries, with reconstitution at the right common femoral artery, the extent of occlusion as progressed since the prior study. Occlusion of the right external iliac artery with reconstitution at the right common femoral artery, which is a new finding. Indurated soft tissues over the sacrum, correlate clinically for sacral decubitus ulcer. Labs Labs: Laboratory Results - last 24 hr 02/24/25 02/24/25 04:18 11:48 WBC 3.5 L RBC 3.49 L Hgb 11.2 L Hct 34.2 L MCV 98.0 MCH 32.1 MCHC 32.7 RDW 12.8 Plt Count 113 L MPV 10.7 H Immature Gran % (Auto) 0.3 Neut % (Auto) 49.5 Lymph % (Auto) 32.5 [place] % (Auto) 14.0 H Eos % (Auto) 3.4 Baso % (Auto) 0.3 Lymph # (Auto) 1.14 [place] # (Auto) 0.5 Eos # (Auto) 0.1 Baso # (Auto) 0.0 Abs Immat Gran (auto) 0.01 Absolute Neuts (auto) 1.7 Absolute Nucleated RBC 0.000 Nucleated RBC % 0.0 Sodium 139 Potassium 4.2 Chloride 108 H Carbon Dioxide 22 Anion Gap 9 BUN 25 H Creatinine 0.97 Estim Creat Clear Calc 26 Estimated GFR 54 L Glucose 81 Calcium 8.5 Magnesium 1.3 L 1.8
--- NOTE | 2025-02-24 14:44 | PM.DS ---
DS: Admitting Diagnosis Discharge Date 02/24/25 Admitting Diagnosis Abdominal pain, n/v and diarrhea DS: Discharge Diagnosis Discharge Diagnosis (1) Colitis: Code(s): K52.9 - Noninfective gastroenteritis and colitis, unspecified Status: Acute (2) PAD (peripheral artery disease): Code(s): I73.9 - Peripheral vascular disease, unspecified Status: Acute (3) Esophageal reflux: Qualifiers: Esophagitis presence: esophagitis presence not specified Qualified Code(s): K21.9 - Gastro-esophageal reflux disease without esophagitis Code(s): K21.9 - Gastro-esophageal reflux disease without esophagitis Status: Acute (4) Aortic stenosis: Code(s): I35.0 - Nonrheumatic aortic (valve) stenosis Status: Acute (5) Essential (primary) hypertension: Code(s): I10 - Essential (primary) hypertension Status: Acute (6) Anemia: Code(s): D64.9 - Anemia, unspecified Status: Acute DS: Summary Hospital Course Reason for hospitalization: 89yo female with PVD here for abdominal pain, n/v and diarrhea. Please see H&P for details. Hospital Course: Patient with abd pain. CT abdomen pelvis with IV contrast showed colonic wall edema from the hepatic flexure to the rectum likely representing infectious, inflammatory or ischemic colitis. Colitis could be infections but WBC normal and more concerning for ischemic given her hx of PAD. Stool studies negative thus far. CDiff was negative. No symptoms of intestinal angina. GI consulted and felt her symptoms more consistent with intestinal infection but ischemia could not be ruled out. He recommended 3-5 days of abx which she completed here. CT scan also shows occlusion of the left common iliac, internal iliac and external iliac arteries with reconstitution at the right common femoral artery that has progressed since the prior study. 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 She follows with Dr Cruz. ASA added. We continued Lipitor. Recommend close follow-up with her vascular surgeon. Will provide her a copy of the CT report so she may show her surgeon. Moderate esophagitis/gastritis noted by CT but relatively asymptomatic. We continued her PPI. Moderate aortic stenosis noted by echo December 2021. No other valvular abnormality. Follows with Cardiology. Repeat echo here again shows moderate . BP elevated at times. She takes Isordil daily which was verified by her pharmacist and Coreg. Macrocytic anemia noted. Hgb trended down to 11. B12 low end of normal at 319. Plt count low as well at around 100K. B12 replacement ordered. Presumably patient with pAFib but not well documented. Not on Eliquis due to anemia. EKG showing normal sinus. We continued Coreg. She has a hx of Cholecystectomy with CT scan showing stable intra and extrahepatic bile duct dilatation with pneumobilia probably secondary to cholecystectomy and prior sphincterotomy. 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 She worked with therapy and was up walking in [place]. She overall did well and was able to be discharged home on 02/24/25. Status at Discharge Cognitive/behavioral status at discharge: stable Time Spent with Patient Time attestation: Total time spent providing and/or coordinating discharge services: 35 minutes Time spent: Greater than 30 minutes Exam Narrative: AF 97.7 160/88 67 17 98% ra Gen - NARD Chest - CTA bilaterally CV - RRR S1/S2 +murmur Abd - Soft, NT/ND, Positive BS. No LLQ pain now Ext -no pedal edema Psych - Nml mood and affect Skin - Warm and dry. DS: Data Data Completed and Pending Labs on day of discharge: Labs from last 24 hours 02/24/25 02/24/25 02/24/25 11:48 04:18 04:17 WBC 3.5 L RBC 3.49 L Hgb 11.2 L Hct 34.2 L MCV 98.0 MCH 32.1 MCHC 32.7 RDW 12.8 Plt Count 113 L MPV 10.7 H Immature Gran % (Auto) 0.3 Neut % (Auto) 49.5 Lymph % (Auto) 32.5 [place] % (Auto) 14.0 H Eos % (Auto) 3.4 Baso % (Auto) 0.3 Lymph # (Auto) 1.14 [place] # (Auto) 0.5 Eos # (Auto) 0.1 Baso # (Auto) 0.0 Abs Immat Gran (auto) 0.01 Absolute Neuts (auto) 1.7 Absolute Nucleated RBC 0.000 Nucleated RBC % 0.0 Sodium 139 Potassium 4.2 Chloride 108 H Carbon Dioxide 22 Anion Gap 9 BUN 25 H Creatinine 0.97 Estim Creat Clear Calc 26 Estimated GFR 54 L Glucose 81 Calcium 8.5 Magnesium 1.8 1.3 L TSH (Reflex) 3.200 Discharge Plan Discharge Attending physician on discharge: Chandler López Consulting providers: Wisam Jean Discharging Clinician: Chandler López Anticipated Discharge Date/Time: 02/24/25 14:56 Patient Disposition: Home Health Service Activity: as tolerated Diet: heart healthy Discharge Instructions: Per Care Coordination: Patient has been accepted to have [facility] for RN, PT, OT [phone]. Home Health staff will call to arrange a time they will see you in your house. Check blood pressure 1 to 2 times a day. Record and bring into your doctor for review. Call your doctor if your blood pressure is greater than 180/110. Take precautions to avoid falls. Rise slowly from a lying or sitting position. Pause before standing or walking. Contact your doctor or call 911 and come to the Emergency Room if you have fevers, recurrent abdominal pain or other worrisome symptoms. Avoid NSAIDs (ibuprofen, naproxen, Aleve). Tylenol is safe to take. New medications: Cyanocobalamin (B12) 1000mg daily for your low B12 level. Baby Aspirin 81mg daily for you vascular disease. No antibiotics -- You have completed your antibiotics here. Follow-up with your primary care provider in 1-2 weeks. Please call for appointment. Follow-up with Dr Cruz in 1-2 weeks. Please call for an appointment. Thank you for using [facility] for your health care needs. Patient Instructions: Antibiotic Form Patient Language: Belgian Stand Alone Forms: General Discharge Information Follow-up/Referrals: Anthony,Bereket Wright MD [Non-Staff] - Call for Appointment Edwina Dubois APRN [Primary Care Provider] - Call for Appointment Discharge Medications: New cyanocobalamin (vitamin B-12) [Vitamin B-12] 1,000 mcg Tablet 1,000 mcg PO QAM Qty: 30 0RF aspirin [Children's Aspirin] 81 mg Tablet,Chewable 81 mg PO DAILY@0800 Qty: 30 0RF Continued Centrum Silver 0.4-300-250 mg-mcg-mcg tablet 1 tablet PO DAILY polyethylene glycol 3350 [Miralax] 17 gram/dose powder 17 g PO DAILY PRN (Reason: constipation) atorvastatin 40 mg tablet 40 mg PO DAILY Qty: 90 1RF omeprazole 40 mg capsule,delayed release(DR/EC) See Rx Instructions .ROUTE .COMPLEX Qty: 90 1RF Dose Instruction: TAKE 1 CAPSULE BY MOUTH DAILY Rx Instructions: TAKE 1 CAPSULE BY MOUTH DAILY isosorbide dinitrate 30 mg tablet 15 mg PO DAILY carvedilol 6.25 mg tablet See Rx Instructions .ROUTE .COMPLEX Qty: 180 0RF Dose Instruction: TAKE 1 TABLET BY MOUTH TWICE DAILY Rx Instructions: TAKE 1 TABLET BY MOUTH TWICE DAILY ferrous sulfate [FeroSul] 325 mg (65 mg iron) tablet See Rx Instructions .ROUTE .COMPLEX Qty: 90 0RF Dose Instruction: TAKE 1 TABLET BY MOUTH EVERY DAY Rx Instructions: TAKE 1 TABLET BY MOUTH EVERY DAY hydrocodone-acetaminophen 5-325 mg tablet 1 tablet PO Q8H PRN (Reason: pain) Qty: 90 0RF Discontinued fluticasone propionate 50 mcg/actuation spray,suspension See Rx Instructions .ROUTE .COMPLEX Qty: 48 0RF Dose Instruction: SHAKE LIQUID AND USE 2 SPRAYS IN EACH NOSTRIL DAILY Rx Instructions: SHAKE LIQUID AND USE 2 SPRAYS IN EACH NOSTRIL DAILY Date of admission: 02/22/25 10:49 Primary Care Provider: Edwina Dubois Admitting Provider: Jenn Hernández Attending physician on admission: Jenn Hernández Condition: Stable Hospitalist MIPS Heart Failure (Exclusion) Patient has history of Heart Transplant or Left Ventricular Assistive Device?: No IF YES, STOP HERE Heart Failure (Qualifier) Patient has current or prior documentation of LVEF less than or equal to 40%, or mod/servere depressed LVSF?: No IF NO, STOP HERE
== END 2025-02-24 16:13 | disposition home health service (06) | DRG 392 ==
LOC: ANHED 18:36 → ANH2MED 02-21 00:57
PROVIDERS: Internal Medicine; Registered Nurse; Admitting Provider Internal Medicine; Emergency Provider Physician Assistant; PCP Nurse Practitioner Family; Visit Provider Internal Medicine
DX: K52.9 Noninfective gastroenteritis and colitis, unspecified (principal); E86.0 Dehydration; I48.0 Paroxysmal atrial fibrillation; I73.9 Peripheral vascular disease, unspecified; I10 Essential (primary) hypertension; I35.0 Nonrheumatic aortic (valve) stenosis; K21.9 Gastro-esophageal reflux disease without esophagitis; M13.0 Polyarthritis, unspecified; Z20.822 Contact with and (suspected) exposure to COVID-19; Z85.41 Personal history of malignant neoplasm of cervix uteri; Z87.891 Personal history of nicotine dependence
CPT/HCPCS: 36415; 71046; 74177; 80048; 80053; 80061; 80069; 81001; 82607; 82746; 83036; 83690; 83735; 84443; 84484; 85025; 85055; 85610; 85730; 87045; 87086; 87427; 87449; 87493; 87637; 93005; 93306; 96361; 96365; 96366; 96367; 96375; 97110; 97161; 97165; 97530; 97535; 99212; 99285; A9270; G0378; G0463; J0696; J1650; J1836; J2405; J3420; J3475; J7030; Q9967